=== PATIENT | female | born 1955 | race Asian ===

== ENCOUNTER → 2016-11-02 | Outpatient (CLI) | payer OTHER ==
[2016-11-02 15:55] LABS: Basophils # (auto) 0 uL; Basophils % (auto) 0.6 % (0.0-2.0); Eosinophils # (auto) 0.1 uL; Eosinophils % (auto) 2.3 % (0.0-7.0); Hematocrit 42.8 % (36.0-46.0); Hemoglobin 14.3 g/dL (12.2-16.2); Lymphocytes # (auto) 1.6 uL; Lymphocytes % (auto) 32.2 % (10.0-50.0); Mean Corpuscular Hemoglobin 30.5 pg (28.0-32.0); Mean Corpuscular Hgb Conc. 33.4 g/dL (32.0-36.0); Mean Corpuscular Volume 91.1 fL (80.0-100.0); Mean Platelet Volume 9.9 fL (7.4-10.4); Monocytes # (auto) 0.3 uL; Neutrophils # (auto) 2.9 uL; Neutrophils % (auto) 58.9 % (37.0-80.0); Platelet Count (auto) 226 10^3/uL (140-450); Red Cell Distribution Width 12.2 % (11.6-16.0); White Blood Cell 4.9 10^3/uL (4.4-10.8)
[2016-11-02 16:22] LABS: Albumin 4.1 g/dL (3.4-5.0); BUN/Creatinine Ratio 20.3; Bilirubin, Direct 0.1 mg/dL (0-0.2); Bilirubin, Total 0.5 mg/dL (0.2-1.0); Calcium 9.1 mg/dL (8.5-10.1); Potassium 4.1 mmol/L (3.5-5.1); Total Protein 7.6 g/dL (6.4-8.2)
[2016-11-02 17:08] LABS: Temperature: 23.4 C (20.0-25.0); Urine Bilirubin Negative (Negative); Urine Blood Negative /uL (Negative); Urine Color Yellow (Yellow); Urine Glucose Normal (Normal); Urine Ketone Negative (Negative); Urine Nitrite Negative (Negative); Urine Urobilinogen Normal (Negative); Urine pH 6.5 (5.0-8.0)
== END | disposition home or self-care (01) ==
LOC: LAB 08:16
PROVIDERS: ATTEND Internal Medicine Cardiovascular Disease
DX: I10 Essential (primary) hypertension (principal); E78.00 Pure hypercholesterolemia, unspecified; K74.1 Hepatic sclerosis; E11.9 Type 2 diabetes mellitus without complications; E03.9 Hypothyroidism, unspecified; D64.9 Anemia, unspecified; E55.9 Vitamin D deficiency, unspecified; N39.0 Urinary tract infection, site not specified; D51.9 Vitamin B12 deficiency anemia, unspecified
CPT/HCPCS: 36415; 80048; 80061; 80076; 81003; 82306; 82607; 82746; 83036; 84443; 85025

== ENCOUNTER → 2017-04-06 | Outpatient (CLI) | payer OTHER ==
[~2017-04-06] VITALS: Ht 161.3 cm; Wt 59.9 kg
== END | disposition home or self-care (01) ==
LOC: Rad HDHVI 09:15
PROVIDERS: ATTEND Internal Medicine Cardiovascular Disease
DX: I10 Essential (primary) hypertension (principal); I25.10 Atherosclerotic heart disease of native coronary artery without angina pectoris; I25.2 Old myocardial infarction; E78.00 Pure hypercholesterolemia, unspecified; Z95.5 Presence of coronary angioplasty implant and graft
CPT/HCPCS: 78452; 93017; 96374; A9500

== ENCOUNTER → 2017-11-20 | Outpatient (CLI) | payer OTHER ==
[2017-11-20 12:09] LABS: Urine Blood Negative /uL (Negative); Urine Specific Gravity 1.023 (1.001-1.035)
[2017-11-20 12:11] LABS: Basophils # (auto) 0 uL; Basophils % (auto) 0.8 % (0.0-2.0); Eosinophils # (auto) 0.1 uL; Eosinophils % (auto) 1.2 % (0.0-7.0); Hematocrit 41.7 % (36.0-46.0); Lymphocytes # (auto) 1.8 uL; Mean Corpuscular Hemoglobin 30.8 pg (28.0-32.0); Mean Corpuscular Hgb Conc. 33.6 g/dL (32.0-36.0); Mean Corpuscular Volume 91.6 fL (80.0-100.0); Monocytes # (auto) 0.3 uL; Monocytes % (auto) 6.1 % (0.0-12.0); Neutrophils # (auto) 2.3 uL; Neutrophils % (auto) 51.9 % (37.0-80.0); Nucleated Red Blood Cells % 0.1 %; Platelet Count (auto) 217 10^3/uL (140-450); Red Blood Cells 4.56 10^6/uL (4.0-5.20); Red Cell Distribution Width 12.6 % (11.8-14.3); White Blood Cell 4.5 10^3/uL (4.4-10.8)
[2017-11-20 12:45] LABS: Free T4 (Free Thyroxine) 1.17 ng/dL (0.89-1.76)
[2017-11-20 12:46] LABS: Albumin 4.2 g/dL (3.4-5.0); BUN/Creatinine Ratio 18.6; Bilirubin, Total 0.5 mg/dL (0.2-1.0); Calcium 9.2 mg/dL (8.5-10.1); Potassium 4.1 mmol/L (3.5-5.1); Total Protein 7.4 g/dL (6.4-8.2)
== END | disposition home or self-care (01) ==
LOC: LAB 08:52
PROVIDERS: ATTEND Internal Medicine Cardiovascular Disease
DX: I10 Essential (primary) hypertension (principal); D64.9 Anemia, unspecified; E78.5 Hyperlipidemia, unspecified; E11.9 Type 2 diabetes mellitus without complications; E55.9 Vitamin D deficiency, unspecified; E03.9 Hypothyroidism, unspecified; D51.9 Vitamin B12 deficiency anemia, unspecified; N39.0 Urinary tract infection, site not specified
CPT/HCPCS: 36415; 80053; 80061; 81003; 82306; 82607; 83036; 84439; 84443; 85025

== ENCOUNTER → 2017-12-05 | Outpatient (CLI) | payer OTHER ==
[~2017-12-05] MED LIST: IOHEXOL 350 MG/ML 100ML IJ ONE; READI-CAT 2 (BARIUM SULF)(VANILLA SMOOTHIE) 450ML ONE
[2017-12-05 10:45] VITALS: BP 153/87
[2017-12-05 11:30] VITALS: BP 139/84
== END | disposition home or self-care (01) ==
LOC: Rad HDHVI 10:42
PROVIDERS: ATTEND Internal Medicine Cardiovascular Disease
DX: N83.209 Unspecified ovarian cyst, unspecified side (principal); K57.30 Diverticulosis of large intestine without perforation or abscess without bleeding
CPT/HCPCS: 74177; 82565; G0463; Q9967

== ENCOUNTER → 2018-05-08 | Outpatient (CLI) | payer OTHER | END | disposition home or self-care (01) | LOC: Rad HDHVI 08:53 | PROVIDERS: ATTEND Internal Medicine Cardiovascular Disease | DX: M19.042 Primary osteoarthritis, left hand (principal); M19.041 Primary osteoarthritis, right hand | CPT/HCPCS: 73130 ==

== ENCOUNTER → 2018-06-27 | Outpatient (CLI) | payer OTHER ==
[2018-06-27 09:39] LABS: Urine Blood Negative /uL (Negative); Urine Specific Gravity 1.022 (1.001-1.035)
[2018-06-27 09:41] LABS: Basophils # (auto) 0 uL; Basophils % (auto) 0.6 % (0.0-2.0); Eosinophils # (auto) 0.1 uL; Eosinophils % (auto) 2.1 % (0.0-7.0); Hemoglobin 13.2 g/dL (12.2-16.2); Lymphocytes % (auto) 39.5 % (10.0-50.0); Mean Corpuscular Hemoglobin 30.9 pg (28.0-32.0); Mean Corpuscular Hgb Conc. 33.8 g/dL (32.0-36.0); Mean Corpuscular Volume 91.4 fL (80.0-100.0); Monocytes # (auto) 0.6 uL; Monocytes % (auto) 11.1 % (0.0-12.0); Neutrophils # (auto) 2.3 uL; Neutrophils % (auto) 46.7 % (37.0-80.0); Platelet Count (auto) 214 10^3/uL (140-450); Red Blood Cells 4.27 10^6/uL (4.0-5.20); Red Cell Distribution Width 12.2 % (11.8-14.3)
[2018-06-27 10:04] LABS: Albumin 3.9 g/dL (3.4-5.0); Calcium 9.2 mg/dL (8.5-10.1); Potassium 3.9 mmol/L (3.5-5.1)
[2018-06-27 10:09] LABS: BUN/Creatinine Ratio 20.3; Bilirubin, Total 0.5 mg/dL (0.2-1.0); Total Protein 7.5 g/dL (6.4-8.2)
== END | disposition home or self-care (01) ==
LOC: LAB 08:11
PROVIDERS: ATTEND Internal Medicine
DX: Z12.11 Encounter for screening for malignant neoplasm of colon (principal); I10 Essential (primary) hypertension; E78.5 Hyperlipidemia, unspecified; E11.9 Type 2 diabetes mellitus without complications; Z87.891 Personal history of nicotine dependence
CPT/HCPCS: 36415; 80053; 80061; 81003; 82306; 83036; 84443; 85025

== ENCOUNTER → 2018-07-01 | Outpatient (CLI) | payer OTHER | END | disposition home or self-care (01) | LOC: LAB 09:14 | PROVIDERS: ATTEND Internal Medicine | DX: Z12.11 Encounter for screening for malignant neoplasm of colon (principal); I10 Essential (primary) hypertension; E78.5 Hyperlipidemia, unspecified | CPT/HCPCS: 82270 ==

== ENCOUNTER → 2018-08-26 | Outpatient (CLI) | payer OTHER ==
[~2018-08-26] VITALS: Ht 30.5 cm; Wt 0.5 kg
[~2018-08-26] MED LIST changes: +FUROSEMIDE 40 MG/4 ML VIAL IV ONE; +FUROSEMIDE 40 MG/4 ML VIAL ONE; -IOHEXOL 350 MG/ML 100ML IJ ONE; -READI-CAT 2 (BARIUM SULF)(VANILLA SMOOTHIE) 450ML ONE
[2018-08-26 09:44] LABS: BUN/Creatinine Ratio 16.3; Potassium 4.1 mmol/L (3.5-5.1)
== END | disposition home or self-care (01) ==
LOC: XYW 08:53
PROVIDERS: ATTEND Urology
DX: N13.30 Unspecified hydronephrosis (principal)
CPT/HCPCS: 36415; 78707; 80048; A9562; J1940

== ENCOUNTER → 2018-10-02 | Outpatient (CLI) | payer OTHER ==
[2018-10-02 09:43] LABS: Albumin 3.8 g/dL (3.4-5.0); Bilirubin, Direct 0.2 mg/dL (0-0.2)
[2018-10-02 09:46] LABS: Bilirubin, Total 0.5 mg/dL (0.2-1.0); Total Protein 7.8 g/dL (6.4-8.2)
[2018-10-03 09:22] LABS: Hepatitis A Total Antibody Positive
[2018-10-03 11:43] LABS: Hepatitis B Surface Antigen Negative (Negative)
[2018-10-03 11:44] LABS: Hepatitis B Surface Antibody Positive; Hepatitis C Antibody Negative (Negative)
[2018-10-03 14:20] LABS: Hepatitis B Core Total AB Positive
== END | disposition home or self-care (01) ==
LOC: LAB 08:13
PROVIDERS: ATTEND Internal Medicine
DX: E11.9 Type 2 diabetes mellitus without complications (principal); E78.5 Hyperlipidemia, unspecified
CPT/HCPCS: 36415; 80076; 83036; 86704; 86706; 86708; 86803; 87340

== ENCOUNTER 2018-12-27 10:11 | Day surgery (SDC) | payer OTHER ==
[2018-12-24 09:31] LABS: Urine WBC None Seen /hpf (0 - 5)
[2018-12-24 09:41] LABS: Basophils # (auto) 0 uL; Basophils % (auto) 0.7 % (0.0-2.0); Eosinophils # (auto) 0.1 uL; Eosinophils % (auto) 1.9 % (0.0-7.0); Hematocrit 40.8 % (36.0-46.0); Hemoglobin 13.8 g/dL (12.2-16.2); Lymphocytes # (auto) 2.2 uL; Lymphocytes % (auto) 38.1 % (10.0-50.0); Mean Corpuscular Hemoglobin 31.2 pg (28.0-32.0); Mean Corpuscular Hgb Conc. 33.9 g/dL (32.0-36.0); Mean Corpuscular Volume 92.1 fL (80.0-100.0); Monocytes # (auto) 0.4 uL; Monocytes % (auto) 6.7 % (0.0-12.0); Neutrophils % (auto) 52.6 % (37.0-80.0); Nucleated Red Blood Cells % 0.1 %; Platelet Count (auto) 204 10^3/uL (140-450); Red Blood Cells 4.43 10^6/uL (4.0-5.20); Red Cell Distribution Width 12.8 % (11.8-14.3); White Blood Cell 5.7 10^3/uL (4.4-10.8)
[2018-12-24 09:48] LABS: Urine Amorphous Crystal MOD /hpf (None Seen); Urine Bacteria NONE SEEN /hpf (None Seen); Urine Blood Negative /uL (Negative)
[2018-12-24 09:58] LABS: INR 0.92 (0.9-1.15); Partial Thromboplastin Time 27.5 sec (23.64-32.05)
[~2018-12-27] VITALS: Ht 162.6 cm; Wt 54.4 kg
[~2018-12-27 10:11] MED LIST changes: +ATOR10TA52 PO; +ENA10T PO; -FUROSEMIDE 40 MG/4 ML VIAL IV ONE; -FUROSEMIDE 40 MG/4 ML VIAL ONE; +ZOLP10TA PO
[2018-12-27] MEDS ORDERED: LIDOCAINE VISCOUS 2% 15ML UD ONE (10:28)
[2018-12-27] MEDS ORDERED: SODIUM CHLORIDE LOCK 10 ML ONE (10:28)
[2018-12-27] MEDS ORDERED: diphenhdrAMINE HCL 50 MG/1 ML VL ONE (10:29)
[2018-12-27] MEDS ORDERED: fentaNYL CITRATE 100 MCG/2 ML VL ONE (10:29)
[2018-12-27] MEDS ORDERED: MIDAZOLAM HCL 5 MG/ML-1ML VIAL ONE (10:29)
[2018-12-27 12:32] VITALS: BP 121/78
== END 2018-12-27 12:47 | disposition home or self-care (01) ==
LOC: SUR 10:11
PROVIDERS: ATTEND Internal Medicine Gastroenterology
DX: Z12.11 Encounter for screening for malignant neoplasm of colon (principal); K64.8 Other hemorrhoids; Z79.899 Other long term (current) drug therapy
CPT/HCPCS: 36415; 45378; 81001; 85025; 85610; 85730; J1200; J2250; J3010; J7030; 99152

== ENCOUNTER → 2019-01-01 | Outpatient (CLI) | payer OTHER | END | disposition home or self-care (01) | LOC: LAB 09:05 | PROVIDERS: ATTEND Internal Medicine | DX: E11.9 Type 2 diabetes mellitus without complications (principal) | CPT/HCPCS: 82043 ==

== ENCOUNTER → 2019-01-29 | Outpatient (CLI) | payer OTHER ==
[2019-01-29 09:21] LABS: Albumin 4.2 g/dL (3.4-5.0); Calcium 9.2 mg/dL (8.5-10.1); Potassium 3.8 mmol/L (3.5-5.1)
[2019-01-29 09:25] LABS: BUN/Creatinine Ratio 15.6; Bilirubin, Total 0.6 mg/dL (0.2-1.0); Total Protein 7.5 g/dL (6.4-8.2)
[2019-01-29 09:30] LABS: Free T4 (Free Thyroxine) 0.89 ng/dL (0.89-1.76)
[2019-01-29 09:31] LABS: Free T3 3.73 pg/mL (2.3-4.2)
== END | disposition home or self-care (01) ==
LOC: LAB 08:02
PROVIDERS: ATTEND Internal Medicine
DX: E78.5 Hyperlipidemia, unspecified (principal); E03.9 Hypothyroidism, unspecified
CPT/HCPCS: 36415; 80053; 80061; 83036; 84439; 84443; 84481

== ENCOUNTER → 2019-05-28 | Outpatient (CLI) | payer OTHER ==
[~2019-05-28] MED LIST changes: -ENA10T PO; +ENAL10TA PO
== END | disposition home or self-care (01) ==
LOC: LAB 08:51
PROVIDERS: ATTEND Internal Medicine
DX: E11.9 Type 2 diabetes mellitus without complications (principal)
CPT/HCPCS: 36415; 83036

== ENCOUNTER → 2019-11-18 | Outpatient (CLI) | payer OTHER ==
[~2019-11-18] MED LIST changes: +CHOL20007 PO; -ENAL10TA PO; +ENAL10TA12 PO; +ENAL10TA13 PO; +MULT1TAB65 PO; +PANT40T PO; +PANT40TA2 PO; +SUCR1TAB22 OR; +ZOLP10TA6 PO
== END | disposition home or self-care (01) ==
LOC: LAB 11:00
PROVIDERS: ATTEND Internal Medicine
DX: M19.90 Unspecified osteoarthritis, unspecified site (principal); R51 Headache; E78.5 Hyperlipidemia, unspecified
CPT/HCPCS: 36415; 82670; 86038; 86141; 86431

== ENCOUNTER → 2019-12-16 | Outpatient (CLI) | payer OTHER ==
[~2019-12-16] MED LIST changes: -CHOL20007 PO; +ENAL10TA PO; -ENAL10TA12 PO; -ENAL10TA13 PO; -MULT1TAB65 PO; -PANT40T PO; -PANT40TA2 PO; -SUCR1TAB22 OR; -ZOLP10TA6 PO
[2019-12-16 09:39] LABS: Cholesterol 157 mg/dL (< 200); HDL Cholesterol 53 mg/dL (40-59); LDL Cholesterol 91 mg/dL (< 100); Triglycerides 139 mg/dL (< 150)
== END | disposition home or self-care (01) ==
LOC: LAB 08:29
PROVIDERS: ATTEND Internal Medicine
DX: R73.03 Prediabetes (principal); E78.5 Hyperlipidemia, unspecified
CPT/HCPCS: 36415; 80061; 82043; 83036

== ENCOUNTER → 2019-12-19 | Outpatient (CLI) | payer OTHER | END | disposition home or self-care (01) | LOC: LAB 08:18 | PROVIDERS: ATTEND Internal Medicine | DX: G93.0 Cerebral cysts (principal) | CPT/HCPCS: 36415; 85652 ==

== ENCOUNTER 2020-04-13 11:16 | Inpatient (IN) | payer OTHER ==
[~2020-04-13] VITALS: Ht 165.1 cm; Wt 55.7 kg
[~2020-04-13 11:16] MED LIST changes: -ENAL10TA PO; +ENAL10TA12 PO
[2020-04-13 12:24] LABS: CRP High Sensitivity 0.02 mg/dL (< 0.3)
[2020-04-13] MEDS ORDERED: ACETAMINOPHEN 500 MG TAB PO PRN (13:15)
[2020-04-13] MEDS ORDERED: NITROGLYCERIN 0.4 MG SL TAB SL PRN (13:15)
[2020-04-13] MEDS ORDERED: MORPHINE SULF INJ 2 MG/ML SYRINGE 1ML IV PRN (13:15)
[2020-04-13] MEDS ORDERED: LORazepam 0.5 MG TAB PO PRN (13:30)
[2020-04-13] MEDS ORDERED: hydrALAZINE HCL 20 MG/ML VL IV PRN (13:30)
[2020-04-13] MEDS ORDERED: DOCUSATE CALCIUM 240 MG CAP PO PRN (13:30)
[2020-04-13] MEDS: ALBUTEROL SULF HFA 90MCG INH 200DOSE IN SCH ×2 (14:00→21:38)
[2020-04-13] MEDS: CHOLECALCIFEROL (VITD3) 2,000 UNIT CAP PO SCH (14:03)
[2020-04-13] MEDS: ASCORBIC ACID 1,000 MG TAB PO SCH (14:03)
[2020-04-13] MEDS: ZINC SULFATE 220mg CAP or TAB PO SCH (14:03)
[2020-04-13] MEDS: DOXYCYCLINE 100 MG TAB/CAP PO SCH ×2 (14:03→20:32)
[2020-04-13] MEDS: SODIUM CHLORIDE 0.9% 1,000 ML IV SCH (14:04)
[2020-04-13] MEDS: ENOXAPARIN SOD 40 MG/0.4 ML SYRINGE SC SCH (14:04)
[2020-04-13 15:25] VITALS: BP 181/89
[2020-04-13 15:28] LABS: Albumin 4.2 g/dL (3.4-5.0); Calcium 9.2 mg/dL (8.5-10.1); Magnesium 2.6 mg/dL (1.6-2.6); Potassium 3.8 mmol/L (3.5-5.1)
[2020-04-13 15:30] LABS: Bilirubin, Total 0.6 mg/dL (0.2-1.0); Total Protein 7.7 g/dL (6.4-8.2)
[2020-04-13 16:21] LABS: Basophils # (auto) 0.1 10 ^3/uL (0-0.2); Basophils % (auto) 1.5 % (0.0-2.0); Eosinophils # (auto) 0 10 ^3/uL (0-0.8); Eosinophils % (auto) 0.5 % (0.0-7.0); Hematocrit 39.3 % (36.0-46.0); Hemoglobin 13.4 g/dL (12.2-16.2); Lymphocytes # (auto) 1.4 10 ^3/uL (0.4-5.4); Lymphocytes % (auto) 29.4 % (10.0-50.0); Mean Corpuscular Hemoglobin 31.4 pg (28.0-32.0); Mean Corpuscular Hgb Conc. 34.2 g/dL (32.0-36.0); Mean Corpuscular Volume 91.8 fL (80.0-100.0); Monocytes # (auto) 0.3 10 ^3/uL (0-1.3); Monocytes % (auto) 5.4 % (0.0-12.0); Neutrophils # (auto) 3.1 10 ^3/uL (1.6-8.6); Neutrophils % (auto) 63.2 % (37.0-80.0); Nucleated Red Blood Cells % 0.1 %; Platelet Count (auto) 194 10^3/uL (140-450); Red Blood Cells 4.28 10^6/uL (4.0-5.20); White Blood Cell 4.9 10^3/uL (4.4-10.8)
[2020-04-13] MEDS ORDERED: ATOR10TA52 PO (16:37)
[2020-04-13] MEDS ORDERED: ZOLP10TA6 PO (16:37)
[2020-04-13] MEDS ORDERED: MULT1TAB65 PO (16:37)
[2020-04-13] MEDS ORDERED: ENAL10TA13 PO (16:37)
[2020-04-13] MEDS ORDERED: CHOL20007 PO (16:37)
[2020-04-13] MEDS ORDERED: PANT40TA2 PO (16:38)
[2020-04-13] MEDS ORDERED: hydrALAZINE HCL 25 MG TAB PO PRN (16:45)
[2020-04-13] MEDS ORDERED: ENALAPRIL MALEATE 10 MG TAB PO ONE (16:45)
[2020-04-13 17:00] VITALS: BP 181/89
[2020-04-13] MEDS ORDERED: BUDESONIDE (INHALATION) 180 MCG IH IN SCH (22:00)
[2020-04-13 22:02] VITALS: BP 135/86
[2020-04-13 22:19] LABS: Urine Amorphous Crystal FEW /hpf (None Seen); Urine Bacteria NONE SEEN /hpf (None Seen); Urine Blood Negative /uL (Negative); Urine Specific Gravity 1.006 (1.001-1.035); Urine WBC 1 /hpf (0 - 5)
[2020-04-14] VITALS (7 sets, daily range): BP systolic 119–136; BP diastolic 70–86
[2020-04-14 08:17] LABS: Basophils # (auto) 0 10 ^3/uL (0-0.2); Basophils % (auto) 0.6 % (0.0-2.0); Eosinophils # (auto) 0.1 10 ^3/uL (0-0.8); Eosinophils % (auto) 1.3 % (0.0-7.0); Hematocrit 41.9 % (36.0-46.0); Hemoglobin 14.3 g/dL (12.2-16.2); Lymphocytes # (auto) 1.6 10 ^3/uL (0.4-5.4); Lymphocytes % (auto) 39.6 % (10.0-50.0); Mean Corpuscular Hemoglobin 31.5 pg (28.0-32.0); Mean Corpuscular Hgb Conc. 34.1 g/dL (32.0-36.0); Mean Corpuscular Volume 92.5 fL (80.0-100.0); Monocytes # (auto) 0.3 10 ^3/uL (0-1.3); Monocytes % (auto) 6.8 % (0.0-12.0); Neutrophils # (auto) 2.1 10 ^3/uL (1.6-8.6); Neutrophils % (auto) 51.7 % (37.0-80.0); Nucleated Red Blood Cells % 0.2 %; Platelet Count (auto) 196 10^3/uL (140-450); Red Blood Cells 4.53 10^6/uL (4.0-5.20); White Blood Cell 4.1 10^3/uL (4.4-10.8)
[2020-04-14 08:24] LABS: Albumin 4.1 g/dL (3.4-5.0); Calcium 9.3 mg/dL (8.5-10.1); Potassium 4.2 mmol/L (3.5-5.1)
[2020-04-14 08:28] LABS: BUN/Creatinine Ratio 17.6; Bilirubin, Total 0.7 mg/dL (0.2-1.0); Total Protein 7.7 g/dL (6.4-8.2)
[2020-04-14] MEDS: ZINC SULFATE 220mg CAP or TAB PO SCH (10:00)
[2020-04-14] MEDS: ASCORBIC ACID 1,000 MG TAB PO SCH (10:00)
[2020-04-14] MEDS ORDERED: PANTOPRAZOLE 40 MG TAB PO SCH (10:00)
[2020-04-14] MEDS: CHOLECALCIFEROL (VITD3) 2,000 UNIT CAP PO SCH (10:00)
[2020-04-14] MEDS: ENOXAPARIN SOD 40 MG/0.4 ML SYRINGE SC SCH (10:49)
[2020-04-14] MEDS: DOXYCYCLINE 100 MG TAB/CAP PO SCH (10:50)
[2020-04-14] MEDS ORDERED: SODIUM CHLORIDE 0.9% 1,000 ML IV ONE (13:30)
[2020-04-14] MEDS ORDERED: ENALAPRIL MALEATE 10 MG TAB PO ONE (13:45)
[2020-04-14] MEDS ORDERED: IOHEXOL 300 MG/ML 100ML BOTTLE IJ ONE (14:10)
[2020-04-14] MEDS: SUCRALFATE 1 GM/10 ML ORAL SUSP PO SCH ×2 (17:32→21:53)
[2020-04-14] MEDS: SODIUM CHLORIDE 0.9% 1,000 ML IV SCH (19:00)
[2020-04-14] MEDS: PANTOPRAZOLE 40 MG TAB PO SCH (21:52)
[2020-04-14] MEDS: ATORVASTATIN 20 MG TAB PO SCH (21:53)
[2020-04-14] MEDS: ZOLPIDEM TARTRATE 5 MG TAB PO PRN (21:55)
[2020-04-15 05:00] VITALS: BP 120/67
[2020-04-15] MEDS: SUCRALFATE 1 GM/10 ML ORAL SUSP PO SCH ×4 (07:03→21:50)
[2020-04-15 09:00] VITALS: BP 122/73
[2020-04-15] MEDS: PANTOPRAZOLE 40 MG TAB PO SCH ×2 (09:58→21:50)
[2020-04-15] MEDS: ENALAPRIL MALEATE 10 MG TAB PO SCH (09:59)
[2020-04-15] MEDS: CHOLECALCIFEROL (VITD3) 1,000UNIT=25mCg TAB PO SCH (09:59)
[2020-04-15] MEDS: ENOXAPARIN SOD 40 MG/0.4 ML SYRINGE SC SCH (10:00)
[2020-04-15] MEDS ORDERED: PANT40T PO (11:37)
[2020-04-15 13:00] VITALS: BP 134/74
[2020-04-15 17:00] VITALS: BP 133/75
[2020-04-15] MEDS: ATORVASTATIN 20 MG TAB PO SCH (21:50)
[2020-04-15 22:00] VITALS: BP 127/74
[2020-04-15] MEDS: ZOLPIDEM TARTRATE 5 MG TAB PO PRN (22:46)
[2020-04-16] MEDS: SUCRALFATE 1 GM/10 ML ORAL SUSP PO SCH ×2 (03:25→10:29)
[2020-04-16 05:00] VITALS: BP 146/84
[2020-04-16 07:15] LABS: Basophils # (auto) 0 10 ^3/uL (0-0.2); Basophils % (auto) 0.9 % (0.0-2.0); Eosinophils # (auto) 0.1 10 ^3/uL (0-0.8); Eosinophils % (auto) 2.1 % (0.0-7.0); Hematocrit 38.9 % (36.0-46.0); Hemoglobin 13.4 g/dL (12.2-16.2); Lymphocytes # (auto) 1.7 10 ^3/uL (0.4-5.4); Lymphocytes % (auto) 45.9 % (10.0-50.0); Mean Corpuscular Hemoglobin 31.7 pg (28.0-32.0); Mean Corpuscular Hgb Conc. 34.6 g/dL (32.0-36.0); Mean Corpuscular Volume 91.8 fL (80.0-100.0); Monocytes # (auto) 0.3 10 ^3/uL (0-1.3); Monocytes % (auto) 7.7 % (0.0-12.0); Neutrophils # (auto) 1.6 10 ^3/uL (1.6-8.6); Neutrophils % (auto) 43.4 % (37.0-80.0); Platelet Count (auto) 172 10^3/uL (140-450); Red Blood Cells 4.23 10^6/uL (4.0-5.20); Red Cell Distribution Width 12.2 % (11.8-14.3); White Blood Cell 3.8 10^3/uL (4.4-10.8)
[2020-04-16 07:24] LABS: INR 0.99 (0.9-1.15); Partial Thromboplastin Time 30.2 sec (23.0-31.2)
[2020-04-16 07:50] LABS: BUN/Creatinine Ratio 14.9; Calcium 8.9 mg/dL (8.5-10.1)
[2020-04-16 09:00] VITALS: BP 122/78
[2020-04-16] MEDS: ENALAPRIL MALEATE 10 MG TAB PO SCH (09:07)
[2020-04-16] MEDS: CHOLECALCIFEROL (VITD3) 1,000UNIT=25mCg TAB PO SCH (09:07)
[2020-04-16] MEDS: PANTOPRAZOLE 40 MG TAB PO SCH (09:07)
[2020-04-16] MEDS: ENOXAPARIN SOD 40 MG/0.4 ML SYRINGE SC SCH (09:07)
[2020-04-16 13:00] VITALS: BP 130/75
[2020-04-16] MEDS ORDERED: SUCR1TAB22 OR (13:44)
[2020-04-16] MEDS ORDERED: SODIUM CHLORIDE LOCK 10 ML ONE (15:22)
[2020-04-16] MEDS ORDERED: LIDOCAINE VISCOUS 2% 15ML UD ONE (15:22)
[2020-04-16] MEDS ORDERED: MIDAZOLAM HCL 5 MG/ML-1ML VIAL ONE (15:22)
[2020-04-16] MEDS ORDERED: fentaNYL CITRATE 100 MCG/2 ML VL ONE (15:22)
[2020-04-16] MEDS: diphenhdrAMINE HCL 50 MG/1 ML VL ONE ×2 (15:25→15:28)
[2020-04-16 16:15] VITALS: BP 151/78
== END 2020-04-16 17:20 | disposition home or self-care (01) | DRG 384 ==
LOC: ER 11:16 → TELE 11:17 → MERGE 11:17 → TELE-EAST 15:27 → TELE-WESTW 04-14 02:57 → WEST WING 04-14 13:49
PROVIDERS: ADMIT Family Medicine; ATTEND Internal Medicine
PROC: 0DB88ZX Excision of Small Intestine, Via Natural or Artificial Opening Endoscopic, Diagnostic (ICD-10-PCS; 2020-04-16)
PROC: 0DB68ZX Excision of Stomach, Via Natural or Artificial Opening Endoscopic, Diagnostic (ICD-10-PCS; principal; 2020-04-16 15:23)
DX: K27.9 Peptic ulcer, site unspecified, unspecified as acute or chronic, without hemorrhage or perforation (principal); K29.70 Gastritis, unspecified, without bleeding; K44.9 Diaphragmatic hernia without obstruction or gangrene; K21.9 Gastro-esophageal reflux disease without esophagitis; K29.80 Duodenitis without bleeding; I16.0 Hypertensive urgency; R06.03 Acute respiratory distress; E78.5 Hyperlipidemia, unspecified; I10 Essential (primary) hypertension; Z20.828 Contact with and (suspected) exposure to other viral communicable diseases; Z95.5 Presence of coronary angioplasty implant and graft; Z82.49 Family history of ischemic heart disease and other diseases of the circulatory system; Z87.891 Personal history of nicotine dependence
CPT/HCPCS: 36415; 43239; 71045; 74177; 80048; 80053; 81001; 82728; 83605; 83615; 83735; 84443; 84484; 85025; 85379; 85610; 85730; 86141; 86850; 86900; 86901; 87040; 87426; G0378; J2250

== ENCOUNTER 2020-06-07 16:06 | Emergency (ER) | payer OTHER ==
[~2020-06-07] VITALS: Ht 152.4 cm; Wt 52.2 kg
[~2020-06-07 16:06] MED LIST changes: +CHOL20007 PO; +ENAL10TA13 PO; +MULT1TAB65 PO; +PANT40T PO; +SUCR1TAB22 OR; +ZOLP10TA6 PO
[2020-06-07 16:12] VITALS: BP 169/84
== END 2020-06-07 20:50 | disposition home or self-care (01) ==
LOC: ER 16:08
DX: J06.9 Acute upper respiratory infection, unspecified (principal); I10 Essential (primary) hypertension; F17.210 Nicotine dependence, cigarettes, uncomplicated; Z20.828 Contact with and (suspected) exposure to other viral communicable diseases
CPT/HCPCS: 36415; 71045; 87426; 99284; U0003

== ENCOUNTER → 2020-12-27 | Outpatient (CLI) | payer OTHER ==
[2020-12-27 09:08] LABS: Cholesterol 159 mg/dL (< 200); HDL Cholesterol 55 mg/dL (40-59); LDL Cholesterol 87 mg/dL (< 100); Triglycerides 121 mg/dL (< 150)
== END | disposition home or self-care (01) ==
LOC: LAB 08:01
PROVIDERS: ATTEND Internal Medicine
DX: I10 Essential (primary) hypertension (principal); R73.03 Prediabetes; E78.5 Hyperlipidemia, unspecified
CPT/HCPCS: 36415; 80061; 82043; 83036

== ENCOUNTER → 2021-01-06 | Outpatient (CLI) | payer OTHER | END | disposition home or self-care (01) | LOC: LAB 08:35 | PROVIDERS: ATTEND Internal Medicine | DX: I10 Essential (primary) hypertension (principal); E78.5 Hyperlipidemia, unspecified; R73.03 Prediabetes | CPT/HCPCS: 82270 ==

== ENCOUNTER → 2021-08-22 | Outpatient (CLI) | payer OTHER | END | disposition home or self-care (01) | LOC: LAB 09:01 | PROVIDERS: ATTEND Internal Medicine | DX: R73.03 Prediabetes (principal) | CPT/HCPCS: 36415; 83036 ==

== ENCOUNTER → 2021-11-24 | Outpatient (CLI) | payer MEDICARE ==
[2021-11-24 09:27] LABS: Cholesterol 153 mg/dL (< 200); HDL Cholesterol 49 mg/dL (40-59); LDL Cholesterol 84 mg/dL (< 100); Triglycerides 126 mg/dL (< 150)
== END | disposition home or self-care (01) ==
LOC: LAB 08:32
PROVIDERS: ATTEND Internal Medicine
DX: R73.03 Prediabetes (principal); Z00.00 Encounter for general adult medical examination without abnormal findings; Z79.899 Other long term (current) drug therapy
CPT/HCPCS: 36415; 80061; 82043

== ENCOUNTER 2021-12-30 15:14 | Emergency (ER) | payer MEDICARE ==
[~2021-12-30] VITALS: Ht 160 cm; Wt 53.1 kg
[2021-12-30 15:59] LABS: Urine Bacteria NONE SEEN /hpf (None Seen); Urine Blood Negative /uL (Negative); Urine Specific Gravity 1.002 (1.001-1.035); Urine WBC 1 /hpf (0 - 5)
[2021-12-30 16:25] LABS: Basophils # (auto) 0 10 ^3/uL (0-0.2); Basophils % (auto) 0.8 % (0.0-2.0); Eosinophils # (auto) 0.1 10 ^3/uL (0-0.8); Eosinophils % (auto) 2.2 % (0.0-7.0); Hematocrit 37.4 % (36.0-46.0); Hemoglobin 12.7 g/dL (12.2-16.2); Lymphocytes # (auto) 1.5 10 ^3/uL (0.4-5.4); Lymphocytes % (auto) 39.3 % (10.0-50.0); Mean Corpuscular Hemoglobin 31.2 pg (28.0-32.0); Mean Corpuscular Volume 91.6 fL (80.0-100.0); Monocytes # (auto) 0.3 10 ^3/uL (0-1.3); Monocytes % (auto) 6.7 % (0.0-12.0); Nucleated Red Blood Cells % 0.1 %; Red Blood Cells 4.09 10^6/uL (4.0-5.20); Red Cell Distribution Width 12.1 % (11.8-14.3); White Blood Cell 3.9 10^3/uL (4.4-10.8)
[2021-12-30 16:37] LABS: BUN/Creatinine Ratio 24.6; Calcium 8.9 mg/dL (8.5-10.1); Magnesium 2.6 mg/dL (1.6-2.6)
[2021-12-30 16:40] LABS: Bilirubin, Total 0.3 mg/dL (0.2-1.0); Total Protein 7.1 g/dL (6.4-8.2)
[2021-12-30 16:57] LABS: Partial Thromboplastin Time 30.1 sec (23.6-33.0)
[2021-12-30 17:22] VITALS: BP 159/76
== END 2021-12-30 17:26 | disposition home or self-care (01) ==
LOC: ER 15:14
DX: R07.89 Other chest pain (principal); I10 Essential (primary) hypertension; I25.2 Old myocardial infarction; I25.10 Atherosclerotic heart disease of native coronary artery without angina pectoris; F17.210 Nicotine dependence, cigarettes, uncomplicated; E78.5 Hyperlipidemia, unspecified; Z79.899 Other long term (current) drug therapy; Z91.018 Allergy to other foods
CPT/HCPCS: 36415; 71046; 80053; 81001; 83735; 84443; 84484; 85025; 85610; 85730; 93005

== ENCOUNTER → 2022-01-19 | Outpatient (CLI) | payer MEDICARE | END | disposition home or self-care (01) | LOC: LAB 10:39 | PROVIDERS: ATTEND Internal Medicine | DX: Z12.11 Encounter for screening for malignant neoplasm of colon (principal) | CPT/HCPCS: 82270 ==

== ENCOUNTER 2022-02-19 20:16 | Emergency (ER) | payer MEDICARE, OTHER ==
[~2022-02-19] VITALS: Ht 160 cm; Wt 53.5 kg
[2022-02-19] MEDS ORDERED: SODIUM CHLORIDE 0.9% 1,000 ML IV ONE (20:45)
[2022-02-19] MEDS ORDERED: ALUM & MAG HYDROX-SIMETH LIQ(MAALOX) 30 ML PO ONE (20:45)
[2022-02-19] MEDS ORDERED: DONNATAL 5ml ORAL Elix (BELLADONNA ALK-PHENOBARB) PO ONE (20:45)
[2022-02-19] MEDS ORDERED: PANTOPRAZOLE 40 MG TAB PO ONE (20:45)
[2022-02-19] MEDS ORDERED: IOHEXOL 300 MG/ML 100ML BOTTLE IJ ONE (21:40)
[2022-02-19 22:08] LABS: Basophils # (auto) 0.1 10 ^3/uL (0-0.2); Basophils % (auto) 1.3 % (0.0-2.0); Eosinophils # (auto) 0.1 10 ^3/uL (0-0.8); Eosinophils % (auto) 2.4 % (0.0-7.0); Hematocrit 39.9 % (36.0-46.0); Lymphocytes # (auto) 1.8 10 ^3/uL (0.4-5.4); Lymphocytes % (auto) 33.3 % (10.0-50.0); Mean Corpuscular Hemoglobin 29.8 pg (28.0-32.0); Mean Corpuscular Hgb Conc. 32.7 g/dL (32.0-36.0); Monocytes # (auto) 0.5 10 ^3/uL (0-1.3); Monocytes % (auto) 8.6 % (0.0-12.0); Neutrophils # (auto) 2.9 10 ^3/uL (1.6-8.6); Neutrophils % (auto) 54.4 % (37.0-80.0); Red Blood Cells 4.38 10^6/uL (4.0-5.20); Red Cell Distribution Width 12.4 % (11.8-14.3); White Blood Cell 5.4 10^3/uL (4.4-10.8)
[2022-02-19 22:36] LABS: Albumin 3.9 g/dL (3.4-5.0); BUN/Creatinine Ratio 20.6; Calcium 8.8 mg/dL (8.5-10.1); Magnesium 2.6 mg/dL (1.6-2.6); Potassium 3.9 mmol/L (3.5-5.1)
[2022-02-19 22:37] LABS: Urine Bacteria NONE SEEN /hpf (None Seen); Urine Blood Negative /uL (Negative); Urine WBC <1 /hpf (0 - 5)
[2022-02-19 22:39] LABS: Urine Specific Gravity > 1.050 (1.001-1.035)
[2022-02-19 22:44] LABS: Bilirubin, Total 0.4 mg/dL (0.2-1.0); Total Protein 7.2 g/dL (6.4-8.2)
[2022-02-19] MEDS ORDERED: PANT1INJ3 IV (23:09)
[2022-02-19] MEDS ORDERED: ALUMCHW6 PO (23:09)
[2022-02-19] MEDS ORDERED: METO-281 PO (23:09)
[2022-02-19 23:45] VITALS: BP 147/78
== END 2022-02-20 01:25 | disposition home or self-care (01) ==
LOC: ER 20:16
DX: R10.13 Epigastric pain (principal); I10 Essential (primary) hypertension; Z87.11 Personal history of peptic ulcer disease
CPT/HCPCS: 36415; 71046; 74177; 80053; 81001; 83690; 83735; 85025; 93005; 96360; 99285; J7030; Q9967

== ENCOUNTER 2022-03-23 17:07 | Emergency (ER) | payer MEDICARE, OTHER ==
[~2022-03-23] VITALS: Ht 165.1 cm; Wt 54.9 kg
[~2022-03-23 17:07] MED LIST changes: +ALUMCHW6 PO; +METO-281 PO; +PANT1INJ3 IV
[2022-03-23 17:22] VITALS: BP 141/77
[2022-03-23 20:10] LABS: Albumin 4.3 g/dL (3.4-5.0); Magnesium 2.8 mg/dL (1.6-2.6); Potassium 3.9 mmol/L (3.5-5.1)
[2022-03-23 20:20] LABS: Basophils # (auto) 0.2 10 ^3/uL (0-0.2); Basophils % (auto) 2.9 % (0.0-2.0); Eosinophils # (auto) 0.1 10 ^3/uL (0-0.8); Eosinophils % (auto) 2.3 % (0.0-7.0); Hematocrit 41.3 % (36.0-46.0); Hemoglobin 13.3 g/dL (12.2-16.2); Lymphocytes # (auto) 1.5 10 ^3/uL (0.4-5.4); Lymphocytes % (auto) 27.6 % (10.0-50.0); Mean Corpuscular Hemoglobin 29.6 pg (28.0-32.0); Mean Corpuscular Hgb Conc. 32.2 g/dL (32.0-36.0); Mean Corpuscular Volume 91.9 fL (80.0-100.0); Monocytes # (auto) 0.3 10 ^3/uL (0-1.3); Monocytes % (auto) 5.9 % (0.0-12.0); Neutrophils # (auto) 3.2 10 ^3/uL (1.6-8.6); Neutrophils % (auto) 61.3 % (37.0-80.0); Nucleated Red Blood Cells % 0.1 %; Red Cell Distribution Width 12.3 % (11.8-14.3); White Blood Cell 5.3 10^3/uL (4.4-10.8)
[2022-03-23 20:22] LABS: BUN/Creatinine Ratio 22.1; Bilirubin, Total 0.4 mg/dL (0.2-1.0); Total Protein 7.8 g/dL (6.4-8.2)
== END 2022-03-23 22:50 | disposition left against medical advice (07) ==
LOC: ER 17:07
DX: R07.89 Other chest pain (principal); I10 Essential (primary) hypertension; I25.2 Old myocardial infarction; I25.10 Atherosclerotic heart disease of native coronary artery without angina pectoris; E78.5 Hyperlipidemia, unspecified; K21.9 Gastro-esophageal reflux disease without esophagitis; F17.210 Nicotine dependence, cigarettes, uncomplicated
CPT/HCPCS: 36415; 71045; 80053; 83735; 83880; 84484; 85025

== ENCOUNTER → 2022-03-24 | Outpatient (CLI) | payer MEDICARE, OTHER | END | disposition home or self-care (01) | LOC: LAB 13:50 | PROVIDERS: ATTEND Internal Medicine | DX: I73.9 Peripheral vascular disease, unspecified (principal) | CPT/HCPCS: 36415; 85379 ==

== ENCOUNTER → 2022-04-07 | Outpatient (CLI) | payer MEDICARE, OTHER | END | disposition home or self-care (01) | LOC: Rad HDHVI 08:52 | PROVIDERS: ATTEND Internal Medicine Cardiovascular Disease | DX: I34.0 Nonrheumatic mitral (valve) insufficiency (principal); I10 Essential (primary) hypertension; E78.5 Hyperlipidemia, unspecified | CPT/HCPCS: 93306 ==

== ENCOUNTER → 2022-04-12 | Outpatient (CLI) | payer MEDICARE, OTHER | END | disposition home or self-care (01) | LOC: Rad HDHVI 08:45 | PROVIDERS: ATTEND Internal Medicine Cardiovascular Disease | DX: R94.4 Abnormal results of kidney function studies (principal); E78.00 Pure hypercholesterolemia, unspecified; I10 Essential (primary) hypertension | CPT/HCPCS: 36415; 82565; 84520; 93880 ==

== ENCOUNTER → 2022-04-13 | Outpatient (CLI) | payer MEDICARE, OTHER ==
[~2022-04-13] MED LIST changes: +IOHEXOL 350 MG/ML 100ML IJ ONE; +READI-CAT 2 (BARIUM SULF)(VANILLA SMOOTHIE) 450ML ONE
[2022-04-13 08:54] VITALS: BP 141/84
[2022-04-13 10:00] VITALS: BP 159/79
== END | disposition home or self-care (01) ==
LOC: Rad HDHVI 08:44
PROVIDERS: ATTEND Internal Medicine Cardiovascular Disease
DX: I25.10 Atherosclerotic heart disease of native coronary artery without angina pectoris (principal); R10.9 Unspecified abdominal pain
CPT/HCPCS: 74177; G0463; Q9967

== ENCOUNTER → 2022-04-21 | Outpatient (CLI) | payer MEDICARE, OTHER ==
[~2022-04-21] VITALS: Ht 160 cm; Wt 53.5 kg
[~2022-04-21] MED LIST changes: -IOHEXOL 350 MG/ML 100ML IJ ONE; -READI-CAT 2 (BARIUM SULF)(VANILLA SMOOTHIE) 450ML ONE
== END | disposition home or self-care (01) ==
LOC: Rad HDHVI 09:32
PROVIDERS: ATTEND Internal Medicine Cardiovascular Disease
DX: I10 Essential (primary) hypertension (principal); I25.10 Atherosclerotic heart disease of native coronary artery without angina pectoris; I25.2 Old myocardial infarction; E78.5 Hyperlipidemia, unspecified; R07.9 Chest pain, unspecified; R06.02 Shortness of breath
CPT/HCPCS: 78452; 93017; 96374; A9500

== ENCOUNTER → 2022-09-26 | Outpatient (CLI) | payer MEDICARE, OTHER ==
[2022-09-26 10:10] LABS: Albumin 4.1 g/dL (3.4-5.0); BUN/Creatinine Ratio 24.2; Bilirubin, Total 0.6 mg/dL (0.2-1.0); Potassium 3.9 mmol/L (3.5-5.1); Total Protein 7.2 g/dL (6.4-8.2)
== END | disposition home or self-care (01) ==
LOC: LAB 08:33
PROVIDERS: ATTEND Internal Medicine
DX: R73.03 Prediabetes (principal); E78.5 Hyperlipidemia, unspecified
CPT/HCPCS: 36415; 80053; 80061; 83036

== ENCOUNTER 2022-12-26 11:32 | Inpatient (IN) | payer MEDICARE, OTHER ==
[~2022-12-26] VITALS: Ht 167.6 cm; Wt 56.8 kg
[~2022-12-26 11:32] MED LIST changes: -ENAL10TA12 PO; -ENAL10TA13 PO; +ENAL1TAB46 PO; +ENAL1TAB47 PO
[2022-12-26 11:56] LABS: Basophils # (auto) 0 10 ^3/uL (0-0.2); Basophils % (auto) 0.7 % (0.0-2.0); Eosinophils # (auto) 0.1 10 ^3/uL (0-0.8); Eosinophils % (auto) 1.8 % (0.0-7.0); Hematocrit 36.9 % (36.0-46.0); Hemoglobin 12.9 g/dL (12.2-16.2); Lymphocytes # (auto) 1.5 10 ^3/uL (0.4-5.4); Lymphocytes % (auto) 38.3 % (10.0-50.0); Mean Corpuscular Hemoglobin 31.8 pg (28.0-32.0); Mean Corpuscular Hgb Conc. 34.9 g/dL (32.0-36.0); Mean Corpuscular Volume 91.1 fL (80.0-100.0); Monocytes # (auto) 0.2 10 ^3/uL (0-1.3); Monocytes % (auto) 6.1 % (0.0-12.0); Neutrophils # (auto) 2.1 10 ^3/uL (1.6-8.6); Neutrophils % (auto) 53.1 % (37.0-80.0); Nucleated Red Blood Cells % 0.1 %; Red Blood Cells 4.05 10^6/uL (4.0-5.20)
[2022-12-26 12:14] LABS: INR 0.93 (0.9-1.15); Partial Thromboplastin Time 28.3 sec (24.6-33.4)
[2022-12-26 13:06] LABS: Calcium 8.7 mg/dL (8.5-10.1); Magnesium 2.7 mg/dL (1.6-2.6); Potassium 3.8 mmol/L (3.5-5.1)
[2022-12-26 13:14] LABS: BUN/Creatinine Ratio 27.4 (10.0-20.0); Bilirubin, Total 0.3 mg/dL (0.2-1.0); Total Protein 6.7 g/dL (6.4-8.2)
[2022-12-26] MEDS ORDERED: NITROGLYCERIN 0.4 MG SL TAB SL PRN (17:00)
[2022-12-26] MEDS ORDERED: MORPHINE SULFATE INJ 2 MG/ml SYRG IV PRN ×2 (17:00)
[2022-12-26] MEDS ORDERED: KETOROLAC TROMETH 30 MG/ML 1ML VIAL IV ONE (17:00)
[2022-12-26] MEDS ORDERED: SODIUM CHLORIDE 0.9% 1,000 ML IV ONE (17:00)
[2022-12-26] MEDS: SUCRALFATE 1 GM TAB PO SCH ×2 (18:00→22:00)
[2022-12-26] MEDS: PANTOPRAZOLE 40 MG TAB PO SCH (22:00)
[2022-12-27] MEDS: ATORVASTATIN 20 MG TAB PO SCH ×2 (05:59→21:02)
[2022-12-27] MEDS: SUCRALFATE 1 GM TAB PO SCH ×4 (05:59→21:01)
[2022-12-27 07:21] LABS: Basophils # (auto) 0 10 ^3/uL (0-0.2); Basophils % (auto) 0.7 % (0.0-2.0); Eosinophils # (auto) 0.1 10 ^3/uL (0-0.8); Eosinophils % (auto) 1.5 % (0.0-7.0); Hematocrit 35.7 % (36.0-46.0); Hemoglobin 12.4 g/dL (12.2-16.2); Lymphocytes # (auto) 1.2 10 ^3/uL (0.4-5.4); Lymphocytes % (auto) 35.3 % (10.0-50.0); Mean Corpuscular Hemoglobin 31.8 pg (28.0-32.0); Mean Corpuscular Hgb Conc. 34.6 g/dL (32.0-36.0); Mean Corpuscular Volume 91.9 fL (80.0-100.0); Monocytes # (auto) 0.2 10 ^3/uL (0-1.3); Monocytes % (auto) 6.4 % (0.0-12.0); Neutrophils # (auto) 1.9 10 ^3/uL (1.6-8.6); Neutrophils % (auto) 56.1 % (37.0-80.0); Nucleated Red Blood Cells % 0.1 %; Red Blood Cells 3.88 10^6/uL (4.0-5.20); Red Cell Distribution Width 12.2 % (11.8-14.3); White Blood Cell 3.5 10^3/uL (4.4-10.8)
[2022-12-27 07:32] LABS: Albumin 3.8 g/dL (3.4-5.0); BUN/Creatinine Ratio 20.8 (10.0-20.0); Bilirubin, Total 0.6 mg/dL (0.2-1.0); Calcium 8.4 mg/dL (8.5-10.1); Total Protein 6.7 g/dL (6.4-8.2)
[2022-12-27 09:15] VITALS: BP 159/80
[2022-12-27] MEDS: ENALAPRIL MALEATE 10 MG TAB PO SCH (10:11)
[2022-12-27] MEDS: PANTOPRAZOLE 40 MG TAB PO SCH ×2 (10:11→21:01)
[2022-12-27] MEDS: ASPirin-EC 81 mg tab PO SCH (10:11)
[2022-12-27 10:53] VITALS: BP 159/80
[2022-12-27 11:00] VITALS: BP 159/80
[2022-12-27 13:00] VITALS: BP 137/73
[2022-12-27 17:00] VITALS: BP 136/76
[2022-12-27 22:00] VITALS: BP 127/76
[2022-12-27] MEDS ORDERED: ZOLPIDEM TARTRATE 5 MG TAB PO PRN (22:00)
[2022-12-28 05:00] VITALS: BP 103/76
[2022-12-28] MEDS: SUCRALFATE 1 GM TAB PO SCH ×2 (05:40→12:00)
[2022-12-28 09:11] VITALS: BP 126/71
[2022-12-28] MEDS: PANTOPRAZOLE 40 MG TAB PO SCH (10:40)
[2022-12-28] MEDS: ASPirin-EC 81 mg tab PO SCH (10:40)
[2022-12-28] MEDS: ENALAPRIL MALEATE 10 MG TAB PO SCH (10:40)
[2022-12-28 12:30] VITALS: BP 113/71
[2022-12-28 14:32] VITALS: BP 126/71
== END 2022-12-28 15:05 | disposition home or self-care (01) | DRG 206 ==
LOC: EDBD 11:32 → ER 11:32 → TELE 16:58 → TELE-EAST 12-27 09:34
PROVIDERS: ADMIT Nurse Practitioner Family; ATTEND Internal Medicine
DX: M94.0 Chondrocostal junction syndrome [Tietze] (principal); I25.10 Atherosclerotic heart disease of native coronary artery without angina pectoris; K21.9 Gastro-esophageal reflux disease without esophagitis; I10 Essential (primary) hypertension; E78.5 Hyperlipidemia, unspecified; Z88.6 Allergy status to analgesic agent; Z87.11 Personal history of peptic ulcer disease; Z87.891 Personal history of nicotine dependence; Z95.5 Presence of coronary angioplasty implant and graft; Z88.1 Allergy status to other antibiotic agents; Z88.5 Allergy status to narcotic agent
CPT/HCPCS: 36415; 71045; 80053; 80061; 83036; 83735; 83880; 84443; 84484; 85025; 85610; 85730; 93005; 93306; 96361; 96374; 99291; G0378; J1885

== ENCOUNTER → 2023-01-03 | Outpatient (CLI) | payer MEDICARE, OTHER ==
[2023-01-03 14:01] LABS: Basophils # (auto) 0 10 ^3/uL (0-0.2); Basophils % (auto) 0.6 % (0.0-2.0); Eosinophils # (auto) 0.1 10 ^3/uL (0-0.8); Eosinophils % (auto) 1.8 % (0.0-7.0); Hematocrit 37.9 % (36.0-46.0); Hemoglobin 12.7 g/dL (12.2-16.2); Lymphocytes # (auto) 1.7 10 ^3/uL (0.4-5.4); Lymphocytes % (auto) 38.8 % (10.0-50.0); Mean Corpuscular Hemoglobin 30.9 pg (28.0-32.0); Mean Corpuscular Hgb Conc. 33.4 g/dL (32.0-36.0); Mean Corpuscular Volume 92.5 fL (80.0-100.0); Monocytes # (auto) 0.3 10 ^3/uL (0-1.3); Monocytes % (auto) 6.7 % (0.0-12.0); Neutrophils # (auto) 2.3 10 ^3/uL (1.6-8.6); Neutrophils % (auto) 52.1 % (37.0-80.0); Nucleated Red Blood Cells % 0.1 %; Red Cell Distribution Width 12.2 % (11.8-14.3); White Blood Cell 4.3 10^3/uL (4.4-10.8)
[2023-01-03 14:14] LABS: CRP High Sensitivity 0.02 mg/dL (< 0.3); Uric Acid 4.5 mg/dL (2.6-6.0)
== END | disposition home or self-care (01) ==
LOC: LAB 13:35
PROVIDERS: ATTEND Internal Medicine
DX: I10 Essential (primary) hypertension (principal); E78.5 Hyperlipidemia, unspecified; M54.2 Cervicalgia; R73.03 Prediabetes
CPT/HCPCS: 36415; 84550; 85025; 86141

== ENCOUNTER 2023-01-13 15:10 | Inpatient (IN) | payer MEDICARE, OTHER ==
[~2023-01-13] VITALS: Ht 165.1 cm; Wt 53.0 kg
[2023-01-13] MEDS: ASPirin 325 MG TAB PO ONE ×2 (15:49→15:55)
[2023-01-13 15:56] LABS: Basophils # (auto) 0 10 ^3/uL (0-0.2); Basophils % (auto) 0.1 % (0.0-2.0); Eosinophils # (auto) 0 10 ^3/uL (0-0.8); Eosinophils % (auto) 0.1 % (0.0-7.0); Hematocrit 39.4 % (36.0-46.0); Lymphocytes # (auto) 0.8 10 ^3/uL (0.4-5.4); Lymphocytes % (auto) 12.1 % (10.0-50.0); Mean Corpuscular Hemoglobin 30.7 pg (28.0-32.0); Mean Corpuscular Hgb Conc. 32.9 g/dL (32.0-36.0); Mean Corpuscular Volume 93.2 fL (80.0-100.0); Monocytes # (auto) 0.2 10 ^3/uL (0-1.3); Monocytes % (auto) 3.3 % (0.0-12.0); Neutrophils # (auto) 5.9 10 ^3/uL (1.6-8.6); Neutrophils % (auto) 84.4 % (37.0-80.0); Nucleated Red Blood Cells % 0.1 %; Red Blood Cells 4.23 10^6/uL (4.0-5.20); Red Cell Distribution Width 12.6 % (11.8-14.3)
[2023-01-13 16:16] LABS: Albumin 4.1 g/dL (3.4-5.0); Calcium 8.5 mg/dL (8.5-10.1)
[2023-01-13 16:19] LABS: BUN/Creatinine Ratio 22.6 (10.0-20.0); Bilirubin, Total 0.3 mg/dL (0.2-1.0); Total Protein 7.1 g/dL (6.4-8.2)
[2023-01-13] MEDS ORDERED: ONDANSETRON HCL 4 MG/2 ML VIAL IV PRN (18:30)
[2023-01-13] MEDS ORDERED: NITROGLYCERIN 0.4 MG SL TAB SL PRN (18:30)
[2023-01-13] MEDS ORDERED: MORPHINE SULFATE INJ 2 MG/ml SYRG IV PRN (18:30)
[2023-01-13] MEDS ORDERED: MORPHINE SULFATE 4 MG/ML SYR/VIAL IV PRN (18:30)
[2023-01-13] MEDS ORDERED: ASPirin 325 MG TAB PO ONE (18:30)
[2023-01-13 18:34] VITALS: BP 135/71
[2023-01-13 19:35] LABS: INR 1.05 (0.9-1.15)
[2023-01-13] MEDS ORDERED: SUCRALFATE 1 GM TAB PO SCH (22:00)
[2023-01-14] MEDS ORDERED: ENALAPRIL MALEATE 10 MG TAB PO SCH (10:00)
[2023-01-14] MEDS ORDERED: ASPirin 81 mg TAB PO SCH (10:00)
[2023-01-14] MEDS ORDERED: PANTOPRAZOLE 40 MG/10 ML VIAL INJ IV SCH (10:00)
[2023-01-14] MEDS ORDERED: MULTIPLE VITAMINS W/ MINERALS TAB PO SCH (10:00)
[2023-01-14] MEDS ORDERED: ATORVASTATIN 20 MG TAB PO SCH (22:00)
== END 2023-01-13 22:24 | disposition left against medical advice (07) | DRG 206 ==
LOC: ER 15:10 → TELE 18:41 → ER 22:24
PROVIDERS: ADMIT Nurse Practitioner Family; ATTEND Nurse Practitioner Family
DX: M94.0 Chondrocostal junction syndrome [Tietze] (principal); E78.5 Hyperlipidemia, unspecified; M47.812 Spondylosis without myelopathy or radiculopathy, cervical region; G89.29 Other chronic pain; K21.9 Gastro-esophageal reflux disease without esophagitis; R73.9 Hyperglycemia, unspecified; Z53.29 Procedure and treatment not carried out because of patient's decision for other reasons; I10 Essential (primary) hypertension; I25.10 Atherosclerotic heart disease of native coronary artery without angina pectoris; K27.9 Peptic ulcer, site unspecified, unspecified as acute or chronic, without hemorrhage or perforation; Z87.11 Personal history of peptic ulcer disease; Z88.1 Allergy status to other antibiotic agents; I25.2 Old myocardial infarction; Z88.5 Allergy status to narcotic agent; Z91.018 Allergy to other foods; Z87.891 Personal history of nicotine dependence; Z88.6 Allergy status to analgesic agent; Z95.5 Presence of coronary angioplasty implant and graft
CPT/HCPCS: 36415; 71045; 80053; 83735; 84484; 85025; 85610; 93005; G0378

== ENCOUNTER 2023-01-19 13:19 | Inpatient (IN) | payer MEDICARE, OTHER ==
[~2023-01-19] VITALS: Ht 162.6 cm; Wt 56.8 kg
[2023-01-19] VITALS (9 sets, daily range): BP systolic 127–162; BP diastolic 71–88; PULSE 52–71; RESP 15–18; TEMP 97.4–98; O2SAT 93–99
[2023-01-19 13:37] LABS: Basophils # (auto) 0 10 ^3/uL (0-0.2); Basophils % (auto) 0.6 % (0.0-2.0); Eosinophils # (auto) 0.1 10 ^3/uL (0-0.8); Eosinophils % (auto) 1.5 % (0.0-7.0); Hematocrit 37.6 % (36.0-46.0); Hemoglobin 12.5 g/dL (12.2-16.2); Lymphocytes # (auto) 1.4 10 ^3/uL (0.4-5.4); Lymphocytes % (auto) 21.7 % (10.0-50.0); Mean Corpuscular Hemoglobin 31.1 pg (28.0-32.0); Mean Corpuscular Hgb Conc. 33.4 g/dL (32.0-36.0); Mean Corpuscular Volume 93.1 fL (80.0-100.0); Monocytes # (auto) 0.4 10 ^3/uL (0-1.3); Monocytes % (auto) 6.7 % (0.0-12.0); Neutrophils # (auto) 4.5 10 ^3/uL (1.6-8.6); Neutrophils % (auto) 69.5 % (37.0-80.0); Nucleated Red Blood Cells % 0.1 %; Red Blood Cells 4.03 10^6/uL (4.0-5.20); Red Cell Distribution Width 12.4 % (11.8-14.3); White Blood Cell 6.4 10^3/uL (4.4-10.8)
[2023-01-19 13:57] LABS: Urine Bacteria NONE SEEN /hpf (None Seen); Urine Blood TRACE /uL (Negative); Urine Clarity Clear (Clear); Urine Protein, UAD Negative (Negative); Urine Specific Gravity 1.006 (1.001-1.035); Urine Urobilinogen Normal (Negative); Urine WBC <1 /hpf (0 - 5)
[2023-01-19 14:00] LABS: Urine Color Yellow (Yellow)
[2023-01-19 14:05] LABS: Albumin 3.8 g/dL (3.4-5.0); Calcium 8.6 mg/dL (8.5-10.1); Potassium 3.8 mmol/L (3.5-5.1)
[2023-01-19 14:07] LABS: INR 0.99 (0.9-1.15); Partial Thromboplastin Time 28.5 SEC (24.5-34.5); Prothrombin Time 10.4 sec (9.3-11.8)
[2023-01-19 14:09] LABS: BUN/Creatinine Ratio 26.3 (10.0-20.0); Bilirubin, Total 0.3 mg/dL (0.2-1.0); Total Protein 6.5 g/dL (6.4-8.2)
[2023-01-19] MEDS ORDERED: MORPHINE SULFATE INJ 2 MG/ml SYRG IM ONE (14:15)
[2023-01-19] MEDS ORDERED: ASPirin 325 MG TAB PO ONE (14:45)
[2023-01-19] MEDS ORDERED: HEPARIN SODIUM (PORCINE) 5000 UNITS/ML 1ML VIAL IV ONE (14:45)
[2023-01-19] MEDS ORDERED: TICAGRELOR 90 MG TAB PO ONE (14:45)
[2023-01-19] MEDS ORDERED: ATORVASTATIN 20 MG TAB PO ONE (14:45)
[2023-01-19] MEDS ORDERED: ANGIOMAX 250 MG VIAL IV ONE (14:48)
[2023-01-19] MEDS ORDERED: MIDAZOLAM HCL 2MG/2ML 2ml VIAL (1mg/ml) ONE (14:48)
[2023-01-19] MEDS ORDERED: fentaNYL CITRATE 100 MCG/2 ML VL ONE (14:48)
[2023-01-19] MEDS ORDERED: HEPARIN SODIUM (PORCINE) 5000 UNITS/ML 1ML VIAL ONE (14:49)
[2023-01-19] MEDS ORDERED: SODIUM CHL 0.9% 50 ML ONE (14:49)
[2023-01-19] MEDS ORDERED: ATORVASTATIN 20 MG TAB ONE (14:50)
[2023-01-19] MEDS ORDERED: LIDOCAINE 2%HCL (LOCAL ANESTH.) INJ 20ML MDV ONE (14:55)
[2023-01-19] MEDS ORDERED: IOHEXOL 350 MG/ML 100ML IJ ONE (14:55)
[2023-01-19] MEDS ORDERED: EPINEPHrine HCL 1 MG/1 ML AMP ONE (15:19)
[2023-01-19] MEDS ORDERED: ATROPINE SULFATE 0.4 MG/1 ML VIAL ONE (15:20)
[2023-01-19] MEDS ORDERED: PNEUMOCOCCAL VACC POLYS 25 MCG/0.5 ML VIAL IM ONE ×2 (17:45→18:00)
[2023-01-19] MEDS ORDERED: HYDR200T36 PO (17:45)
[2023-01-19] MEDS ORDERED: MORPHINE SULFATE INJ 2 MG/ml SYRG IV PRN (18:30)
[2023-01-19] MEDS ORDERED: ENALAPRIL MALEATE 10 MG TAB PO ONE (18:30)
[2023-01-19] MEDS: MAALOX PLUS or MAALOX 30 ML PO SCH (21:17)
[2023-01-19] MEDS: PANTOPRAZOLE 40 MG TAB PO SCH (21:19)
[2023-01-19] MEDS: TICAGRELOR 90 MG TAB PO SCH (21:20)
[2023-01-19] MEDS ORDERED: ZOLPIDEM TARTRATE 5 MG TAB PO SCH (22:00)
[2023-01-19] MEDS ORDERED: ATORVASTATIN 20 MG TAB PO SCH (22:00)
[2023-01-19] MEDS: CHOLECALCIFEROL (VITD3) 2,000 UNIT CAP/TAB PO SCH (22:01)
[2023-01-20] MEDS: MAALOX PLUS or MAALOX 30 ML PO SCH ×2 (05:08→14:19)
[2023-01-20 05:28] VITALS: BP 120/76; PULSE 60; RESP 19; TEMP 98; O2SAT 95
[2023-01-20 08:00] VITALS: BP 128/69; PULSE 55; PULSE 71; RESP 21; TEMP 97.7; O2SAT 98
[2023-01-20] MEDS: CHOLECALCIFEROL (VITD3) 2,000 UNIT CAP/TAB PO SCH (09:43)
[2023-01-20] MEDS: TICAGRELOR 90 MG TAB PO SCH (09:43)
[2023-01-20] MEDS: PANTOPRAZOLE 40 MG TAB PO SCH (09:43)
[2023-01-20 09:54] VITALS: BP 128/69; PULSE 71; RESP 21; TEMP 97.7; O2SAT 98
[2023-01-20] MEDS ORDERED: ENALAPRIL MALEATE 10 MG TAB PO SCH (10:00)
[2023-01-20] MEDS ORDERED: MULTIPLE VITAMINS W/ MINERALS TAB PO SCH (10:00)
[2023-01-20 12:40] VITALS: BP 111/61; PULSE 59; RESP 18; TEMP 97.5; O2SAT 96
[2023-01-20 15:23] VITALS: BP 111/61; PULSE 59; RESP 18; TEMP 97.5; O2SAT 96
[2023-01-20] MEDS ORDERED: PNEUMOCOCCAL VACC POLYS 25 MCG/0.5 ML VIAL IM ONE (16:30)
[2023-02-06] MEDS ORDERED: CLOP75TA70 PO (04:46)
[2023-02-06] MEDS ORDERED: LORA-1123 PO (04:46)
[2023-02-06] MEDS ORDERED: TICA90TA PO (04:46)
== END 2023-01-20 16:30 | disposition home or self-care (01) | DRG 247 ==
LOC: ER 13:19 → TELE 15:22 → TELE-WESTW 17:05
PROVIDERS: ADMIT Internal Medicine Cardiovascular Disease; ATTEND Internal Medicine Cardiovascular Disease
PROC: 027034Z Dilation of Coronary Artery, One Artery with Drug-eluting Intraluminal Device, Percutaneous Approach (ICD-10-PCS; principal; 2023-01-19)
PROC: 4A023N7 Measurement of Cardiac Sampling and Pressure, Left Heart, Percutaneous Approach (ICD-10-PCS; 2023-01-19)
PROC: B2111ZZ Fluoroscopy of Multiple Coronary Arteries using Low Osmolar Contrast (ICD-10-PCS; 2023-01-19)
PROC: B2151ZZ Fluoroscopy of Left Heart using Low Osmolar Contrast (ICD-10-PCS; 2023-01-19)
DX: I21.19 ST elevation (STEMI) myocardial infarction involving other coronary artery of inferior wall (principal); E78.5 Hyperlipidemia, unspecified; I10 Essential (primary) hypertension; I25.10 Atherosclerotic heart disease of native coronary artery without angina pectoris; Z79.02 Long term (current) use of antithrombotics/antiplatelets; Z87.11 Personal history of peptic ulcer disease; Z87.891 Personal history of nicotine dependence; Z88.8 Allergy status to other drugs, medicaments and biological substances
CPT/HCPCS: 36415; 71045; 80053; 81001; 83880; 84484; 85025; 85610; 85730; 87081; 92941; 93005; 93458; 96374; 99152; 99153; 99291; G0378; J0171; J0461; J2250

== ENCOUNTER → 2023-02-23 | Outpatient (CLI) | payer MEDICARE, OTHER ==
[~2023-02-23] MED LIST changes: -ALUMCHW6 PO; +CLOP75TA70 PO; -ENAL1TAB47 PO; +HYDR200T36 PO; +LORA-1123 PO; -METO-281 PO; -PANT1INJ3 IV; -SUCR1TAB22 OR; +TICA90TA PO; -ZOLP10TA6 PO
[2023-02-23 11:04] LABS: Erythrocyte Sedimentation Rate 5 mm/hr (0-20)
== END | disposition home or self-care (01) ==
LOC: LAB 09:50
PROVIDERS: ATTEND Internal Medicine
DX: I25.10 Atherosclerotic heart disease of native coronary artery without angina pectoris (principal); M54.2 Cervicalgia; M94.0 Chondrocostal junction syndrome [Tietze]; E78.2 Mixed hyperlipidemia
CPT/HCPCS: 36415; 85652; 86141

== ENCOUNTER → 2023-02-26 | Outpatient (CLI) | payer MEDICARE, OTHER | END | disposition home or self-care (01) | LOC: Rad HDHVI 13:03 | PROVIDERS: ATTEND Internal Medicine Cardiovascular Disease | DX: I34.0 Nonrheumatic mitral (valve) insufficiency (principal); I10 Essential (primary) hypertension | CPT/HCPCS: 93306 ==

== ENCOUNTER → 2023-05-07 | Outpatient (CLI) | payer MEDICARE, OTHER ==
[2023-05-07 08:37] LABS: Triglycerides 88 mg/dL (< 150)
[2023-05-07 08:38] LABS: LDL Cholesterol 67 mg/dL (< 100)
[2023-05-07 08:39] LABS: Cholesterol 146 mg/dL (< 200)
[2023-05-07 08:40] LABS: HDL Cholesterol 58 mg/dL (40-59)
== END | disposition home or self-care (01) ==
LOC: LAB 08:01
PROVIDERS: ATTEND Internal Medicine
DX: R73.03 Prediabetes (principal); Z79.899 Other long term (current) drug therapy
CPT/HCPCS: 36415; 80061; 83036

== ENCOUNTER → 2023-06-18 | Outpatient (CLI) | payer MEDICARE, OTHER | END | disposition home or self-care (01) | LOC: Rad HDHVI 10:03 | PROVIDERS: ATTEND Internal Medicine Cardiovascular Disease | DX: I34.81 Nonrheumatic mitral (valve) annulus calcification (principal); I10 Essential (primary) hypertension | CPT/HCPCS: 93306 ==

== ENCOUNTER → 2023-07-11 | Outpatient (CLI) | payer MEDICARE, OTHER ==
[2023-07-11 08:29] LABS: Alanine Aminotransferase 14 U/L (7-40); Albumin 4.5 g/dL (3.2-4.8); Alkaline Phosphatase 40 U/L (46-116); Amylase 76 U/L (30-118); Anion Gap 3 (5-15); Aspartate Aminotransferase 15 U/L (13-40); BUN/Creatinine Ratio 14.1 (10.0-20.0); Bilirubin, Total 0.8 mg/dL (0.2-1.0); Blood Urea Nitrogen 10 mg/dL (9-23); Calcium 9.6 mg/dL (8.5-10.1); Carbon Dioxide 32 mmol/L (20-30); Chloride 107 mmol/L (98-107); Glucose 113 mg/dL (74-106); Sodium 142 mmol/L (136-145)
[2023-07-11 09:00] LABS: Lipase 42 U/L (12-53)
== END | disposition home or self-care (01) ==
LOC: LAB 07:55
PROVIDERS: ATTEND Internal Medicine
DX: R10.9 Unspecified abdominal pain (principal)
CPT/HCPCS: 36415; 80053; 82150; 83690

== ENCOUNTER → 2023-07-24 | Outpatient (CLI) | payer MEDICARE, OTHER | END | disposition home or self-care (01) | LOC: LAB 12:43 | PROVIDERS: ATTEND Internal Medicine | DX: Z12.11 Encounter for screening for malignant neoplasm of colon (principal) | CPT/HCPCS: 82270 ==

== ENCOUNTER → 2023-11-13 | Outpatient (CLI) | payer MEDICARE, OTHER ==
[2023-11-13 08:33] LABS: Chloride 106 mmol/L (98-107); Potassium 3.7 mmol/L (3.5-5.1); Sodium 140 mmol/L (136-145)
[2023-11-13 08:34] LABS: Anion Gap 4 (5-15); Calcium 9.4 mg/dL (8.5-10.1); Carbon Dioxide 30 mmol/L (20-30)
[2023-11-13 08:37] LABS: Creatinine, Urine 179.79 mg/dL (30.0-125.0)
[2023-11-13 08:39] LABS: BUN/Creatinine Ratio 17.5 (10.0-20.0); Blood Urea Nitrogen 14 mg/dL (9-23); Glucose 115 mg/dL (74-106)
[2023-11-13 09:06] LABS: Folate (Folic Acid) 26.27 ng/mL (>5.38)
== END | disposition home or self-care (01) ==
LOC: LAB 07:33
PROVIDERS: ATTEND Internal Medicine
DX: E78.5 Hyperlipidemia, unspecified (principal); E55.9 Vitamin D deficiency, unspecified; M85.80 Other specified disorders of bone density and structure, unspecified site; N94.89 Other specified conditions associated with female genital organs and menstrual cycle
CPT/HCPCS: 36415; 80048; 82043; 82306; 82570; 82607; 82746; 84207; 84443

== ENCOUNTER → 2024-01-29 | Outpatient (CLI) | payer MEDICARE, OTHER ==
[2024-01-29 07:18] LABS: Urine Bacteria None Seen /hpf (None Seen)
[2024-01-29 07:30] LABS: Urine Blood Negative /uL (Negative); Urine Clarity Clear (Clear); Urine Color Light-Yellow (Yellow); Urine Mucus FEW (None Seen); Urine Protein, UAD Negative (Negative); Urine Specific Gravity 1.018 (1.001-1.035); Urine Urobilinogen Normal (Negative); Urine WBC 1 /hpf (0 - 5); Urine pH 6.5 (5.0-9.0)
[2024-01-29 07:32] LABS: Basophils # (auto) 0 10 ^3/uL (0-0.2); Basophils % (auto) 0.6 % (0.0-2.0); Eosinophils # (auto) 0.1 10 ^3/uL (0-0.8); Eosinophils % (auto) 1.9 % (0.0-7.0); Hematocrit 40.5 % (36.0-46.0); Lymphocytes # (auto) 1.3 10 ^3/uL (0.4-5.4); Lymphocytes % (auto) 35.9 % (10.0-50.0); Mean Corpuscular Hemoglobin 31.4 pg (28.0-32.0); Mean Corpuscular Hgb Conc. 34.4 g/dL (32.0-36.0); Mean Corpuscular Volume 91.3 fL (80.0-100.0); Monocytes # (auto) 0.3 10 ^3/uL (0-1.3); Monocytes % (auto) 8.1 % (0.0-12.0); Neutrophils # (auto) 1.9 10 ^3/uL (1.6-8.6); Neutrophils % (auto) 53.5 % (37.0-80.0); Nucleated Red Blood Cells % 0.2 %; Red Blood Cells 4.44 10^6/uL (4.0-5.20); Red Cell Distribution Width 12.1 % (11.8-14.3); White Blood Cell 3.6 10^3/uL (4.4-10.8)
[2024-01-29 08:47] LABS: Alanine Aminotransferase 24 U/L (7-40); Alkaline Phosphatase 44 U/L (46-116); Amylase 72 U/L (30-118); Anion Gap 3 (5-15); Aspartate Aminotransferase 17 U/L (13-40); BUN/Creatinine Ratio 20.3 (10.0-20.0); Blood Urea Nitrogen 15 mg/dL (9-23); Calcium 9.8 mg/dL (8.5-10.1); Carbon Dioxide 30 mmol/L (20-30); Chloride 107 mmol/L (98-107); Glucose 108 mg/dL (74-106); Sodium 140 mmol/L (136-145)
[2024-01-29 08:48] LABS: Albumin 4.4 g/dL (3.2-4.8); Bilirubin, Total 0.9 mg/dL (0.2-1.0); Total Protein 6.9 g/dL (5.7-8.2)
[2024-01-29 09:01] LABS: Lipase 39 U/L (12-53)
== END | disposition home or self-care (01) ==
LOC: LAB 07:09
PROVIDERS: ATTEND Internal Medicine
DX: N94.89 Other specified conditions associated with female genital organs and menstrual cycle (principal); R10.9 Unspecified abdominal pain; I73.9 Peripheral vascular disease, unspecified
CPT/HCPCS: 36415; 80053; 81001; 82150; 83690; 85025

== ENCOUNTER 2024-04-24 05:45 | Inpatient (IN) | payer MEDICARE, OTHER ==
[~2024-04-24] VITALS: Ht 152.4 cm; Wt 54.1 kg
[2024-04-24 06:44] LABS: Alanine Aminotransferase 26 U/L (7-40); Alkaline Phosphatase 48 U/L (46-116); Anion Gap 5 (5-15); Aspartate Aminotransferase 22 U/L (13-40); BUN/Creatinine Ratio 19.3 (10.0-20.0); Blood Urea Nitrogen 16 mg/dL (9-23); Calcium 9.8 mg/dL (8.7-10.4); Carbon Dioxide 30 mmol/L (20-31); Chloride 105 mmol/L (98-107); Glucose 112 mg/dL (74-106); Potassium 3.8 mmol/L (3.5-5.1); Sodium 140 mmol/L (136-145)
[2024-04-24 06:45] LABS: Albumin 4.6 g/dL (3.2-4.8); Bilirubin, Total 1.1 mg/dL (0.2-1.0); Total Protein 7.2 g/dL (5.7-8.2)
[2024-04-24 07:00] LABS: Basophils # (auto) 0 10 ^3/uL (0-0.2); Basophils % (auto) 0.5 % (0.0-2.0); Eosinophils # (auto) 0.1 10 ^3/uL (0-0.8); Eosinophils % (auto) 2.3 % (0.0-7.0); Hematocrit 41.7 % (36.0-46.0); Hemoglobin 14.4 g/dL (12.2-16.2); Lymphocytes # (auto) 1.5 10 ^3/uL (0.4-5.4); Lymphocytes % (auto) 43.2 % (10.0-50.0); Mean Corpuscular Hemoglobin 32.2 pg (28.0-32.0); Mean Corpuscular Hgb Conc. 34.5 g/dL (32.0-36.0); Mean Corpuscular Volume 93.2 fL (80.0-100.0); Monocytes # (auto) 0.3 10 ^3/uL (0-1.3); Monocytes % (auto) 8.3 % (0.0-12.0); Neutrophils # (auto) 1.6 10 ^3/uL (1.6-8.6); Neutrophils % (auto) 45.7 % (37.0-80.0); Nucleated Red Blood Cells % 0.1 %; Platelet Count (auto) 166 10^3/uL (140-450); Red Blood Cells 4.47 10^6/uL (4.0-5.20); Red Cell Distribution Width 12.3 % (11.8-14.3); White Blood Cell 3.6 10^3/uL (4.4-10.8)
[2024-04-24] MEDS: SODIUM CHLORIDE 0.9% 1,000 ML IV ONE (09:51)
[2024-04-24] MEDS: MORPHINE SULFATE 4 MG/ML SYR/VIAL IV ONE (09:52)
[2024-04-24] MEDS: METOCLOPRAMIDE HCL 5MG/ml INJ 2ml VIAL IV ONE (09:53)
[2024-04-24] MEDS ORDERED: NITROGLYCERIN 0.4 MG SL TAB SL PRN (13:45)
[2024-04-24] MEDS ORDERED: MORPHINE SULFATE INJ 2 MG/ml SYRG IV PRN (13:45)
[2024-04-24] MEDS ORDERED: ONDANSETRON HCL 4 MG/2 ML VIAL IV PRN (13:45)
[2024-04-24] MEDS: ENALAPRIL MALEATE 10 MG TAB PO SCH (16:37)
[2024-04-24] MEDS: hydrOXYchloroQUINE SULFATE 200 MG TAB PO SCH (16:37)
[2024-04-24 17:11] VITALS: BP 129/71; PULSE 55; RESP 18; TEMP 97.5; O2SAT 98
[2024-04-24] MEDS ORDERED: ASPI-543 PO (17:40)
[2024-04-24 20:00] VITALS: RESP 18; O2SAT 93
[2024-04-24 21:20] VITALS: BP 143/84; PULSE 62; RESP 18; TEMP 98.1; O2SAT 93
[2024-04-24] MEDS: ZOLPIDEM TARTRATE 5 MG TAB PO PRN (21:35)
[2024-04-24] MEDS: ATORVASTATIN 20 MG TAB PO SCH (21:36)
[2024-04-24] MEDS: PANTOPRAZOLE 40 MG TAB PO SCH (21:36)
[2024-04-24] MEDS: MORPHINE SULFATE INJ 2 MG/ml SYRG IV PRN (21:39)
[2024-04-25] VITALS (8 sets, daily range): BP systolic 111–143; BP diastolic 54–77; PULSE 54–97; RESP 17–20; TEMP 97.5–98.4; O2SAT 94–98
[2024-04-25 06:13] LABS: Basophils # (auto) 0 10 ^3/uL (0-0.2); Basophils % (auto) 0.7 % (0.0-2.0); Eosinophils # (auto) 0.1 10 ^3/uL (0-0.8); Hematocrit 37.9 % (36.0-46.0); Hemoglobin 13.2 g/dL (12.2-16.2); Lymphocytes # (auto) 1.6 10 ^3/uL (0.4-5.4); Lymphocytes % (auto) 38.5 % (10.0-50.0); Mean Corpuscular Hemoglobin 32.4 pg (28.0-32.0); Mean Corpuscular Hgb Conc. 34.9 g/dL (32.0-36.0); Mean Corpuscular Volume 92.8 fL (80.0-100.0); Monocytes # (auto) 0.4 10 ^3/uL (0-1.3); Monocytes % (auto) 9.3 % (0.0-12.0); Neutrophils # (auto) 2.1 10 ^3/uL (1.6-8.6); Neutrophils % (auto) 49.5 % (37.0-80.0); Nucleated Red Blood Cells % 0.1 %; Platelet Count (auto) 163 10^3/uL (140-450); Red Blood Cells 4.09 10^6/uL (4.0-5.20); Red Cell Distribution Width 12.2 % (11.8-14.3); White Blood Cell 4.3 10^3/uL (4.4-10.8)
[2024-04-25 06:14] LABS: Calcium 9.4 mg/dL (8.7-10.4); Chloride 109 mmol/L (98-107); Potassium 3.8 mmol/L (3.5-5.1); Sodium 141 mmol/L (136-145)
[2024-04-25 06:15] LABS: Anion Gap 6 (5-15); Carbon Dioxide 26 mmol/L (20-31)
[2024-04-25 06:21] LABS: BUN/Creatinine Ratio 15.5 (10.0-20.0); Blood Urea Nitrogen 11 mg/dL (9-23); Glucose 109 mg/dL (74-106)
[2024-04-25] MEDS ORDERED: ENALAPRIL MALEATE 10 MG TAB PO SCH (10:00)
[2024-04-25] MEDS ORDERED: hydrOXYchloroQUINE SULFATE 200 MG TAB PO SCH (10:00)
[2024-04-25] MEDS: ASPirin 81 mg TAB PO ONE (13:00)
[2024-04-25] MEDS: CLOPIDOGREL BISULFATE 75 MG TAB PO ONE (13:00)
[2024-04-25 13:34] LABS: Triglycerides 81 mg/dL (< 150)
[2024-04-25 13:35] LABS: LDL Cholesterol 78 mg/dL (< 100)
[2024-04-25 13:36] LABS: Cholesterol 141 mg/dL (< 200); HDL Cholesterol 51 mg/dL (40-59)
[2024-04-26 00:41] VITALS: BP 115/65; PULSE 59; RESP 16; TEMP 98.8; O2SAT 98
[2024-04-26 05:31] VITALS: BP 128/68; PULSE 61; RESP 16; TEMP 98.4; O2SAT 96
[2024-04-26 06:19] LABS: Basophils # (auto) 0 10 ^3/uL (0-0.2); Basophils % (auto) 0.7 % (0.0-2.0); Eosinophils # (auto) 0.1 10 ^3/uL (0-0.8); Eosinophils % (auto) 2.1 % (0.0-7.0); Hematocrit 39.1 % (36.0-46.0); Hemoglobin 13.4 g/dL (12.2-16.2); Lymphocytes # (auto) 1.8 10 ^3/uL (0.4-5.4); Lymphocytes % (auto) 40.4 % (10.0-50.0); Mean Corpuscular Hemoglobin 31.9 pg (28.0-32.0); Mean Corpuscular Hgb Conc. 34.3 g/dL (32.0-36.0); Mean Corpuscular Volume 92.8 fL (80.0-100.0); Monocytes # (auto) 0.3 10 ^3/uL (0-1.3); Monocytes % (auto) 7.5 % (0.0-12.0); Neutrophils # (auto) 2.3 10 ^3/uL (1.6-8.6); Neutrophils % (auto) 49.3 % (37.0-80.0); Platelet Count (auto) 168 10^3/uL (140-450); Red Blood Cells 4.22 10^6/uL (4.0-5.20); Red Cell Distribution Width 12.8 % (11.8-14.3); White Blood Cell 4.6 10^3/uL (4.4-10.8)
[2024-04-26 06:27] LABS: Chloride 109 mmol/L (98-107); Sodium 141 mmol/L (136-145)
[2024-04-26 06:28] LABS: Anion Gap 5 (5-15); Carbon Dioxide 27 mmol/L (20-31)
[2024-04-26 06:29] LABS: Calcium 9.6 mg/dL (8.7-10.4)
[2024-04-26 06:33] LABS: BUN/Creatinine Ratio 17.3 (10.0-20.0); Blood Urea Nitrogen 14 mg/dL (9-23); Glucose 117 mg/dL (74-106)
[2024-04-26 08:00] VITALS: PULSE 52; PULSE 61; RESP 18; O2SAT 98
[2024-04-26] MEDS: CLOPIDOGREL BISULFATE 75 MG TAB PO SCH (10:16)
[2024-04-26] MEDS: ASPirin 81 mg TAB PO SCH (10:16)
== END 2024-04-26 14:05 | disposition left against medical advice (07) | DRG 554 ==
LOC: ER 05:45 → TELE 13:38 → TELE-WESTW 17:14
PROVIDERS: ADMIT Internal Medicine; ATTEND Internal Medicine
DX: M19.09 Primary osteoarthritis, other specified site (principal); I10 Essential (primary) hypertension; E78.5 Hyperlipidemia, unspecified; K21.9 Gastro-esophageal reflux disease without esophagitis; Z53.29 Procedure and treatment not carried out because of patient's decision for other reasons; I25.10 Atherosclerotic heart disease of native coronary artery without angina pectoris; M50.33 Other cervical disc degeneration, cervicothoracic region; I25.2 Old myocardial infarction; Z98.61 Coronary angioplasty status; Z87.891 Personal history of nicotine dependence; Z87.11 Personal history of peptic ulcer disease; Z88.5 Allergy status to narcotic agent; Z79.899 Other long term (current) drug therapy
CPT/HCPCS: 36415; 71045; 72070; 80048; 80053; 80061; 84443; 84484; 85025; 85379; 93005; 93306; 96374; 96375; G0378

== ENCOUNTER → 2024-05-05 | Outpatient (CLI) | payer MEDICARE, OTHER ==
[~2024-05-05] MED LIST changes: +ASPI-543 PO
== END | disposition home or self-care (01) ==
LOC: Rad HDHVI 10:00
PROVIDERS: ATTEND Internal Medicine Cardiovascular Disease
DX: I25.10 Atherosclerotic heart disease of native coronary artery without angina pectoris (principal)
CPT/HCPCS: 93306

== ENCOUNTER → 2024-05-08 | Outpatient (CLI) | payer MEDICARE, OTHER ==
[2024-05-08 08:13] LABS: Basophils # (auto) 0 10 ^3/uL (0-0.2); Basophils % (auto) 0.9 % (0.0-2.0); Eosinophils # (auto) 0.1 10 ^3/uL (0-0.8); Eosinophils % (auto) 1.8 % (0.0-7.0); Hematocrit 41.4 % (36.0-46.0); Hemoglobin 14.1 g/dL (12.2-16.2); Lymphocytes # (auto) 1.4 10 ^3/uL (0.4-5.4); Lymphocytes % (auto) 43.2 % (10.0-50.0); Mean Corpuscular Hemoglobin 31.6 pg (28.0-32.0); Mean Corpuscular Volume 93.2 fL (80.0-100.0); Monocytes # (auto) 0.3 10 ^3/uL (0-1.3); Monocytes % (auto) 8.5 % (0.0-12.0); Neutrophils # (auto) 1.5 10 ^3/uL (1.6-8.6); Neutrophils % (auto) 45.6 % (37.0-80.0); Nucleated Red Blood Cells % 0.2 %; Platelet Count (auto) 173 10^3/uL (140-450); Red Blood Cells 4.44 10^6/uL (4.0-5.20); Red Cell Distribution Width 12.7 % (11.8-14.3); White Blood Cell 3.2 10^3/uL (4.4-10.8)
== END | disposition home or self-care (01) ==
LOC: LAB 07:42
PROVIDERS: ATTEND Internal Medicine
DX: M06.9 Rheumatoid arthritis, unspecified (principal); E53.1 Pyridoxine deficiency; E55.9 Vitamin D deficiency, unspecified; Z79.899 Other long term (current) drug therapy
CPT/HCPCS: 36415; 82306; 83036; 84207; 85025

== ENCOUNTER → 2024-05-23 | Outpatient (CLI) | payer MEDICARE, OTHER ==
[2024-05-23 07:09] LABS: Triglycerides 125 mg/dL (< 150)
[2024-05-23 07:10] LABS: LDL Cholesterol 149 mg/dL (< 100)
[2024-05-23 07:11] LABS: Cholesterol 222 mg/dL (< 200); HDL Cholesterol 57 mg/dL (40-59)
== END | disposition home or self-care (01) ==
LOC: LAB 06:28
PROVIDERS: ATTEND Internal Medicine
DX: E78.5 Hyperlipidemia, unspecified (principal)
CPT/HCPCS: 36415; 80061

== ENCOUNTER → 2024-08-11 | Outpatient (CLI) | payer MEDICARE, OTHER ==
[2024-08-11 08:19] LABS: Basophils # (auto) 0 10 ^3/uL (0-0.2); Basophils % (auto) 0.7 % (0.0-2.0); Eosinophils # (auto) 0.1 10 ^3/uL (0-0.8); Hematocrit 43.4 % (36.0-46.0); Hemoglobin 14.8 g/dL (12.2-16.2); Lymphocytes # (auto) 1.7 10 ^3/uL (0.4-5.4); Lymphocytes % (auto) 45.7 % (10.0-50.0); Mean Corpuscular Hemoglobin 31.4 pg (28.0-32.0); Mean Corpuscular Hgb Conc. 34.1 g/dL (32.0-36.0); Mean Corpuscular Volume 92.3 fL (80.0-100.0); Monocytes # (auto) 0.3 10 ^3/uL (0-1.3); Monocytes % (auto) 8.4 % (0.0-12.0); Neutrophils # (auto) 1.6 10 ^3/uL (1.6-8.6); Neutrophils % (auto) 43.2 % (37.0-80.0); Nucleated Red Blood Cells % 0.2 %; Platelet Count (auto) 193 10^3/uL (140-450); Red Cell Distribution Width 12.2 % (11.8-14.3); White Blood Cell 3.6 10^3/uL (4.4-10.8)
[2024-08-11 08:25] LABS: HDL Cholesterol 58 mg/dL (40-59)
[2024-08-11 08:28] LABS: Cholesterol 242 mg/dL (< 200); LDL Cholesterol 155 mg/dL (< 100); Triglycerides 151 mg/dL (< 150)
== END | disposition home or self-care (01) ==
LOC: LAB 07:22
PROVIDERS: ATTEND Internal Medicine
DX: E78.5 Hyperlipidemia, unspecified (principal); D78.89 Other postprocedural complications of the spleen; Z79.899 Other long term (current) drug therapy
CPT/HCPCS: 36415; 80061; 82306; 84207; 85025

== ENCOUNTER → 2024-09-08 | Outpatient (CLI) | payer MEDICARE, OTHER ==
[2024-09-08 07:59] LABS: Albumin 4.6 g/dL (3.2-4.8); Bilirubin, Total 0.9 mg/dL (0.2-1.0); Total Protein 7.1 g/dL (5.7-8.2)
[2024-09-08 08:14] LABS: Bilirubin, Direct 0.2 mg/dL (<0.3)
== END | disposition home or self-care (01) ==
LOC: LAB 07:00
PROVIDERS: ATTEND Internal Medicine
DX: E78.5 Hyperlipidemia, unspecified (principal)
CPT/HCPCS: 36415; 80076

== ENCOUNTER → 2024-09-22 | Outpatient (CLI) | payer MEDICARE, OTHER ==
[2024-09-22 07:58] LABS: Albumin 4.6 g/dL (3.2-4.8); Total Protein 7.1 g/dL (5.7-8.2)
[2024-09-22 07:59] LABS: Bilirubin, Direct 0.2 mg/dL (<0.3)
== END | disposition home or self-care (01) ==
LOC: LAB 06:24
PROVIDERS: ATTEND Internal Medicine
DX: E78.5 Hyperlipidemia, unspecified (principal); D72.819 Decreased white blood cell count, unspecified
CPT/HCPCS: 36415; 80061; 80076; 84207

== ENCOUNTER 2025-02-02 12:37 | Inpatient (IN) | payer MEDICARE, OTHER ==
[~2025-02-02] VITALS: Ht 30.5 cm; Wt 57.1 kg
[2025-02-02 13:36] LABS: Urine Protein, UAD Negative (Negative)
[2025-02-02] MEDS: SUCRALFATE 1 GM/10 ML ORAL SUSP PO ONE (13:48)
[2025-02-02] MEDS: PANTOPRAZOLE 40 MG/10 ML VIAL INJ IV ONE (13:48)
[2025-02-02 13:51] VITALS: PULSE 64; RESP 18; O2SAT 98
[2025-02-02 13:53] LABS: Benzodiazephine Screen, Urine Neg (NEGATIVE)
[2025-02-02 13:57] LABS: Amphetamine Screen, Urine Neg (NEGATIVE); Barbiturate Scree,Urine Neg (NEGATIVE); Cannabinoid Screen, Urine Neg (NEGATIVE); Cocaine Screen, Urine Neg (NEGATIVE); Opiate Scree,Urine Neg (NEGATIVE); Phencyclidine Screen, Urine Neg (NEGATIVE)
[2025-02-02 14:42] LABS: Hematocrit 40.1 % (36.0-46.0); Hemoglobin 13.8 g/dL (12.2-16.2); Mean Corpuscular Hemoglobin 31.9 pg (28.0-32.0); Mean Corpuscular Volume 92.5 fL (80.0-100.0); Nucleated Red Blood Cells % 0.1 %
[2025-02-02 14:50] LABS: Chloride 105 mmol/L (98-107); Potassium 4.0 mmol/L (3.5-5.1); Sodium 140 mmol/L (136-145)
[2025-02-02 14:51] LABS: Anion Gap 5 (5-15); Carbon Dioxide 30 mmol/L (20-31)
[2025-02-02 14:52] LABS: Calcium 10.1 mg/dL (8.7-10.4)
[2025-02-02 14:56] LABS: Glucose 93 mg/dL (74-106)
[2025-02-02 14:57] LABS: BUN/Creatinine Ratio 17.2 (10.0-20.0); Blood Urea Nitrogen 17 mg/dL (9-23)
--- NOTE | 2025-02-02 15:06 | ED.PDOC ---
History of Present Illness HPI Comments Patient is a 69-year-old female with a medical history of hypertension, hyperlipidemia, [place] s/p PCI x2 presented to the ED with a chief complaint of epigastric abdominal pain for the last 3 weeks. Patient reports of epigastric abdominal pain which is nonradiating, intermittent, crampy associated with symptoms of dyspepsia, early satiety, bloating and burps after eating. About 10 days ago she was seen by her primary care provider and was started on Protonix and Carafate for did not help with the symptoms. Patient denies any vomiting, diarrhea, constipation, black stools, blood in stool. Denies weight loss, night sweats. Chief Complaint: Abdominal Pain Time Seen by MD: 12:43 Primary Care Provider: ESAU Allergies: Coded Allergies: Hydrocodone (Verified Allergy, Unknown, Dizziness, Shaking, 01/19/23) [place] Flavoring Agent (non-screenin (Verified Allergy, Unknown, Hives, 01/19/23) Home Meds Active Scripts Pantoprazole Sodium Sesquihydr (Pantoprazole Sodium) 40 Mg Tab, 40 MG PO BID for 30 Days, #60 TAB Prov:IVIS RO MD 04/15/20 Reported Medications Aspirin (Aspir-Low) 81 Mg Tab, 81 MG PO DAILY for 30 Days, MG 04/24/24 Ticagrelor Base (BRILINTA) 90 Mg Tab, 1 TAB PO BID 02/06/23 Lorazepam (Lorazepam) 1 Mg Tab, 1 TAB PO DAILYPRN PRN for ANXIETY 02/06/23 Clopidogrel Bisulfate (CLOPIDOGREL) 75 Mg Tab, 1 TAB PO DAILY 02/06/23 Hydroxychloroquine Sulfate (Hydroxychloroquine Sulfat) 200 Mg Tab, 200 MG PO DAILY for Arthritis for 30 Days, MG 01/19/23 Cholecalciferol (VITAMIN D3) Unknown Strength Tab, PO DAILY, #30 TAB 5 Refills 04/13/20 Multiple Vitamins W/ Minerals (Multivitamin Adults 50+) 1 Tab Tab, 1 TAB PO DAILY, TAB 04/13/20 Enalapril Maleate (VASOTEC TABLET) 10 Mg Tb, 1 TAB PO DAILY, #30 TAB 5 Refills 12/24/18 Atorvastatin Calcium (ATORVASTATIN CALCIUM) 10 Mg Tab, 1 TAB PO DAILY, #30 TAB 5 Refills 12/24/18 Zolpidem Tartrate (Ambien) 10 Mg Tab, 1 TAB PO QPM, #30 TAB 5 Refills 12/24/18 Mode of Arrival: Ambulatory Past Medical History PAST MEDICAL HISTORY: CAD, GERD, High Lipids, HTN, HI, PUD Surgical History: , [employer] INVENTORY AUDITOR History: No Pertinent INVENTORY AUDITOR History Family History Family History: Unknown Social History Smoker: Quit Less Than 1 Year Alcohol: Occasionally Drugs: Denies Drug Use Lives In: Home Constitutional: denies: chills, diaphoresis, fatigue, fever, malaise, sweats, weakness, others EENTM: denies: blurred vision, double vision, ear bleeding, ear discharge, ear drainage, ear pain, ear ringing, eye pain, eye redness, hearing loss, mouth pain, mouth swelling, nasal discharge, nose bleeding, nose congestion, nose pain, photophobia, tearing, throat pain, throat swelling, voice changes, others Respiratory: denies: cough, hemoptysis, orthopnea, SOB at rest, shortness of breath, SOB with excertion, stridor, wheezing, others Cardiovascular: denies: chest pain, dizzy spells, diaphoresis, Dyspnea on exertion, edema, irregular heart beat, left arm pain, lightheadedness, palpitations, PND, syncope, others Gastrointestinal: reports: abdominal pain, nausea, poor appetite Genitourinary: denies: abnormal vagina bleeding, burning, dyspareunia, dysuria, flank pain, frequency, hematuria, incontinence, pain, , vagina discharge, urgency, others Neurological: denies: dizziness, fainting, headache, left sided numbness, left sided weakness, numbness, paresthesia, pre-existing deficit, right sided numbness, right sided weakness, seizure, speech problems, tingling, tremors, weakness, others Musculoskeletal: denies: back pain, gout, joint pain, joint swelling, muscle pain, muscle stiffness, neck pain, others Integumetry: denies: bruises, change in color, change in hair/nails, dryness, laceration, lesions, lumps, rash, wounds, others Allergic/Immunocompromised: denies: Difficulty Healing, Frequent Infections, Hives, Itching, others Hematologic/Lymphatic: denies: anemia, blood clots, easy bleeding, easy bruising, swollen glands, others Endocrine: denies: excessive hunger, excessive sweating, excessive thirst, excessive urination, flushing, intolerance to cold, intolerance to heat, unexpl ained weight gain, unexplained weight loss, others Psychiatric: denies: anxiety, bipolar disorder, depression, hopeless, panic disorder, schizophrenia, sleepless, suicidal, others Physical Exam General Appearance: Mild Distress, Thin HEENT: Normal ENT Inspection, Pharynx Normal, TMs Normal Neck: Full Range of Motion, Non-Tender, Normal, Normal Inspection Respiratory: Chest Non-Tender, Lungs Clear, No Accessory Muscle Use, No Respiratory Distress, Normal Breath Sounds Cardiovascular: No Edema, No JVD, No Murmur, No Gallop, Normal Peripheral Pulses, Regular Rate/Rhythm Breast Exam: Deferred Gastrointestinal: Epigastric, No Organomegaly, No Pulsatile Mass, Normal Bowel Sounds, Tenderness Genitalia: Deferred Pelvic: Deferred Rectal: Deferred Extremities: No calf tenderness, Normal capillary refill, Normal inspection, Normal range of motion, Non-tender, No pedal edema Neurologic: Alert, director of user experience II-XII nml as Tested, No Motor Deficits, Normal Affect, Normal Mood, No Sensory Deficits Cerebellar Function: Normal Reflexes: NOT DONE Skin: Dry, Normal Color, Warm Peripheral Pulses: 2+ Radial (R), 2+ Radial (L) Lymphatic: No Adenopathy Was a procedure done? Was a procedure done?: No Differential Dx Considerations may include: Acute gastritis, peptic ulcer disease, cholecystitis, pancreatitis, gastroenteritis, ileus, hypermotility, bowel obstruction X-Ray, Labs, Meds, VS Vital Signs Date Time Temp Pulse Resp B/P (MAP) Pulse Ox O2 Delivery O2 Flow Rate FiO2 02/02/25 16:43 56 20 97 Room Air 02/02/25 16:43 98.6 56 20 142/50 (80) 97 98.6 02/02/25 13:51 64 18 98 Room Air* 0 21 02/02/25 13:51 98.2 64 18 104/52 (69) 98 98.2 02/02/25 12:59 67 02/02/25 12:55 98.1 70 16 130/76 (94) 96 98.1 Lab Test 02/02/25 14:10 02/02/25 13:01 Range/Units White Blood Count 4.7 4.4-10.8 10^3/uL Red Blood Count 4.33 4.0-5.20 10^6/uL Hemoglobin 13.8 12.2-16.2 g/dL Hematocrit 40.1 36.0-46.0 % Mean Corpuscular Volume 92.5 80.0-100.0 fL Mean Corpuscular Hemoglobin 31.9 28.0-32.0 pg Mean Corpuscular Hemoglobin Concent 34.5 32.0-36.0 g/dL Red Cell Distribution Width 12.9 11.8-14.3 % Platelet Count 192 140-450 10^3/uL Mean Platelet Volume 8.9 6.9-10.8 fL Neutrophils (%) (Auto) 60.3 37.0-80.0 % Lymphocytes (%) (Auto) 29.9 10.0-50.0 % Monocytes (%) (Auto) 6.9 0.0-12.0 % Eosinophils (%) (Auto) 2.4 0.0-7.0 % Basophils (%) (Auto) 0.5 0.0-2.0 % Neutrophils # (Auto) 2.9 1.6-8.6 10 ^3/uL Lymphocytes # (Auto) 1.4 0.4-5.4 10 ^3/uL Monocytes # (Auto) 0.3 0-1.3 10 ^3/uL Eosinophils # (Auto) 0.1 0-0.8 10 ^3/uL Basophils # (Auto) 0 0-0.2 10 ^3/uL Nucleated Red Blood Cells 0.1 % Sodium Level 140 136-145 mmol/L Potassium Level 4.0 3.5-5.1 mmol/L Chloride Level 105 98-107 mmol/L Carbon Dioxide Level 30 20-31 mmol/L Anion Gap 5 5-15 Blood Urea Nitrogen 17 9-23 mg/dL Creatinine 0.99 0.550-1.02 mg/dL Glomerular Filtration Rate Calc 62 >90 mL/min BUN/Creatinine Ratio 17.2 10.0-20.0 Serum Glucose 93 74-106 mg/dL Calcium Level 10.1 8.7-10.4 mg/dL Lipase 48 12-53 U/L Urine Color Light-yellow Yellow Urine Clarity Clear Clear Urine pH 5.5 5.0-9.0 Urine Specific [place] 1.013 1.001-1.035 Urine Protein Negative Negative Urine Ketones Negative Negative Urine Blood Negative Negative /uL Urine Nitrite Negative Negative Urine Bilirubin Negative Negative Urine Urobilinogen Normal Negative mg/dL Urine Leukocyte Esterase Negative Negative /uL Urine RBC <1 0 - 4 /hpf Urine Microscopic WBC < 1 0-5 /HPF Urine Squamous Epithelial Cells Few <5 /hpf Urine Bacteria None seen None Seen /hpf Urine Mucus Few None Seen Urine Glucose Normal Normal mg/dL Urine Opiates Screen Neg NEGATIVE Urine Fentanyl Screen Neg NEGATIVE Urine Barbiturates Screen Neg NEGATIVE Urine Phencyclidine Screen Neg NEGATIVE Urine Amphetamines Screen Neg NEGATIVE Urine Benzodiazepines Screen Neg NEGATIVE Urine Cocaine Screen Neg NEGATIVE Urine Cannabinoids Screen Neg NEGATIVE Current Medications Medications (Trade) Dose Ordered Sig/Ki Route Start Time Stop Time Status Last Admin Pantoprazole Sodium (Protonix) 40 mg ONCE ONCE IV 02/02/25 13:15 02/02/25 13:35 DC 02/02/25 13:48 Sucralfate (Carafate Susp) 1 gm ONCE ONCE PO 02/02/25 13:15 02/02/25 13:35 DC 02/02/25 13:48 Patient is a 69-year-old female came to the ER with a chief complaint of epigastric abdominal pain. Patient has been having with the pain since the last 3 weeks on and off associated with dyspepsia, early satiety, nausea but denies any vomiting, melena, constipation, diarrhea. CT abdomen pelvis with IV contrast was done which showed fecal like contents with a small mobile which could be seen in ileus, hypomotility, bowel obstruction and moderate volume stool within the colon. CBC , BMP BNP were grossly normal and lipase level were within normal limits. Since the patient has been having this pain for the last 3 weeks and is not relieved from Protonix and Carafate, associated with symptoms of dyspepsia patient might benefit from a EGD and will be admitted for further inpatient management. Patient and the daughter agrees with the further plan of management. Time of 1ST Reevaluation: 14:48 Reevaluation 1ST: Unchanged Patient Education/Counseling: Diagnosis, Treatment Family Education/Counseling: Diagnosis, Treatment SEPSIS Sepsis Screen Date sepsis recognized/suspect: Feb 02, 2025 Time Sepsis recognized/suspect: 1254 Recent Procedure: No On Antibiotic Therapy: No Respiratory Rate >20: No Heart Rate >90: No Temp<36 C (96.8 F) or >38.3 C: No SBP <90 or MAP <65 mmHG: No New Acute Mental Status Change: No Is the patient on CPAP, BIPAP,: No Physician Orders Ct Ab Pel With Iv Con Only (02/02/25 13:01) Heplock Iv (02/02/25 ) Electrocardigram (02/02/25 13:53) Vital Signs Date Time Temp Pulse Resp B/P (MAP) Pulse Ox O2 Delivery O2 Flow Rate FiO2 02/02/25 16:43 56 20 97 Room Air 02/02/25 16:43 98.6 56 20 142/50 (80) 97 98.6 02/02/25 13:51 64 18 98 Room Air* 0 21 02/02/25 13:51 98.2 64 18 104/52 (69) 98 98.2 02/02/25 12:59 67 02/02/25 12:55 98.1 70 16 130/76 (94) 96 98.1 Laboratory Tests Test 02/02/25 14:10 White Blood Count 4.7 10^3/uL (4.4-10.8) Medications Medications Dose Ordered Sig/Ki Route Start Time Stop Time Status Last Admin Dose Admin Pantoprazole Sodium 40 mg ONCE ONCE IV 02/02/25 13:15 02/02/25 13:35 DC 02/02/25 13:48 Sucralfate 1 gm ONCE ONCE PO 02/02/25 13:15 02/02/25 13:35 DC 02/02/25 13:48 Departure 1 Departure Time of Disposition: 17:40 Impression: Primary Impression: Acute abdominal pain Additional Impressions: Dyspepsia Constipation Disposition: 09 ADMITTED INPATIENT Condition: Stable Critical Care Note Critical Care Time?: No Stability Stability form required: No Heart Score Heart Score: Heart Score Response (Comments) Value History N/A 0 EKG N/A 0 Age N/A 0 Risk Factors N/A 0 Troponin N/A 0 Total 0 ALONZO PROCTOR RESIDENT Feb 02, 2025 15:06
--- NOTE | 2025-02-02 17:16 | DVH ---
Indication: epigastric pain, dyspepsia Technique: CT axial images of the abdomen and pelvis are obtained with intravenous contrast. Coronal and sagittal reformats were obtained. Radiation Dose Information: CTDI volume is 5.07 mGy. Dose-length product is 272.39 mGy*cm Comparison: CT ABD PELVIS W CONTRAST on DOS: 04/13/22, CT AB PEL WITH IV CON ONLY on DOS: 02/19/22 FINDINGS: The lung bases demonstrate atelectasis. Adrenal glands, spleen, pancreas unremarkable. No enhancing hepatic lesion. No CT evidence for cholel ithiasis. No hydronephrosis. Stomach is partially distended. Small bowel loops demonstrate Fecal like contents. Moderate volume stool within the colon. Normal appendix. Abdominal aorta normal in caliber. Atherosclerotic disease. Bladder distended. No free pelvic fluid. No inguinal lymphadenopathy. There is mild bilateral sacroiliac degenerative joint disease. [id number] thoracolumbar degener ative disc disease. IMPRESSION: Fecal like contents within the small bowel which can be seen with ileus, hypomotility, bowel obstruct ion. Moderate volume stool within the colon. Atherosclerotic disease. Other findings as described.
--- NOTE | 2025-02-02 18:35 | ECG ---
[facility] Test Date: 2025-02-02 Test Time: 12:59:16 Pat Name: MANJEET MACDONALD Department: er Room: Gender: F Director Of Early Childhood Education: gibran : 1955 Requested By: ALONZO PROCTOR Order Number: [id number] Reading MD: Abhishek Braga Measurements Intervals [place] Rate: 67 P: 65 CT: 137 QRS: 76 QRSD: 89 T: 73 QT: 424 QTc: 448 Interpretive Statements Sinus rhythm Electronically Signed On 02-02-2025 19:38:05 PDT by Abhishek Braga Please click the below link to view image of tracing.
[2025-02-02] MEDS ORDERED: NITROGLYCERIN 0.4 MG SL TAB SL PRN (23:15)
[2025-02-02] MEDS ORDERED: MORPHINE SULFATE INJ 2 MG/ml SYRG IV PRN (23:15)
--- NOTE | 2025-02-02 23:17 | DVHHP2 ---
History of Present Illness History of Present Illness This is a 69-year-old female with past medical history of hypertension, hyperlipidemia, [place] s/p PCI x2 with 2 stent (on 2013 and 2022), PUD presented to the ED with a chief complaint of epigastric pain for the last 3 weeks but worsen last 2 days which is localized, cramping in nature, 8 to 9/10 intensity, aggravated after meal, no radiation, tried PPI/sucralfate with does not helps. Patient having similar symptoms before and visited primary care and prescribed medicine is not helping to reduce epigastric pain. Patient also reported feeling nausea but no vomiting, dyspepsia, early satiety and bloating after eating. Currently denies any chest pain, cough, SOB, headache, diarrhea, constipation, dysuria, fever. Seen by director of family service center Dr. Perez and last visit January 26. 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 PCP: Karthik Ballard Review of Systems Constitutional: Yes: Weakness; No: Fever, Chills, Sweats, Malaise, Other Eyes: No: Pain, Vision change, Conjunctivae inflammation, Eyelid inflammation, Other, Redness ENT: No: Ear pain, Ear discharge, Nose pain, Nose discharge, Nose congestion, Mouth pain, Mouth swelling, Throat pain, Throat swelling, Other Respiratory: No: Cough, Dry, Shortness of breath, SOB with excertion, Wheezing, Hemoptysis, Pleuritic Pain, Sputum, Wheezing, Other Gastrointestinal: Nausea, Abdominal Pain, Other (Feeling bloating ); No: Vomiting, Diarrhea, Constipation, Melena, Hematochezia Genitourinary: No Dysuria, No Frequency, No Incontinence, No Hematuria, No Retention, No Other Musculoskeletal: No: other, neck pain, shoulder pain, arm pain, back pain, hand pain, leg pain, foot pain Skin: No: Rash, Lesions, Jaundice, Bruising, Other Neurological: No: Weakness, Numbness, Incoordination, Change in speech, Confusion, Seizures, Other Allergies: Coded Allergies: Hydrocodone (Verified Allergy, Unknown, Dizziness, Shaking, 01/19/23) [place] Flavoring Agent (non-screenin (Verified Allergy, Unknown, Hives, 01/19/23) Exam Vital Signs Vital Signs Date Time Temp Pulse Resp B/P (MAP) Pulse Ox O2 Delivery O2 Flow Rate FiO2 02/02/25 21:36 97.6 55 20 151/76 (101) 97 97.6 02/02/25 16:43 Room Air 02/02/25 13:51 0 21 General Appearance: Alert, Oriented X3, Cooperative, No acute distress HEENT: Atraumatic, PERRLA, EOMI Respiratory: Clear to auscultation, Normal air movement Cardiovascular: Regular rate, Normal S1, Normal S2 Abdominal: Normal bowel sounds, Soft, Other (Tenderness present epigastric region on deep palpation) Extremities: No clubbing, No cyanosis, No edema, Normal pulses Skin: No rashes, No breakdown, No significant lesion Neuro: Normal gait, Normal speech, Strength at 5/5 X4 ext Labs/Xrays Labs Test 02/02/25 14:10 02/02/25 13:01 Range/Units White Blood Count 4.7 4.4-10.8 10^3/uL Red Blood Count 4.33 4.0-5.20 10^6/uL Hemoglobin 13.8 12.2-16.2 g/dL Hematocrit 40.1 36.0-46.0 % Mean Corpuscular Volume 92.5 80.0-100.0 fL Mean Corpuscular Hemoglobin 31.9 28.0-32.0 pg Mean Corpuscular Hemoglobin Concent 34.5 32.0-36.0 g/dL Red Cell Distribution Width 12.9 11.8-14.3 % Platelet Count 192 140-450 10^3/uL Mean Platelet Volume 8.9 6.9-10.8 fL Neutrophils (%) (Auto) 60.3 37.0-80.0 % Lymphocytes (%) (Auto) 29.9 10.0-50.0 % Monocytes (%) (Auto) 6.9 0.0-12.0 % Eosinophils (%) (Auto) 2.4 0.0-7.0 % Basophils (%) (Auto) 0.5 0.0-2.0 % Neutrophils # (Auto) 2.9 1.6-8.6 10 ^3/uL Lymphocytes # (Auto) 1.4 0.4-5.4 10 ^3/uL Monocytes # (Auto) 0.3 0-1.3 10 ^3/uL Eosinophils # (Auto) 0.1 0-0.8 10 ^3/uL Basophils # (Auto) 0 0-0.2 10 ^3/uL Nucleated Red Blood Cells 0.1 % Sodium Level 140 136-145 mmol/L Potassium Level 4.0 3.5-5.1 mmol/L Chloride Level 105 98-107 mmol/L Carbon Dioxide Level 30 20-31 mmol/L Anion Gap 5 5-15 Blood Urea Nitrogen 17 9-23 mg/dL Creatinine 0.99 0.550-1.02 mg/dL Glomerular Filtration Rate Calc 62 >90 mL/min BUN/Creatinine Ratio 17.2 10.0-20.0 Serum Glucose 93 74-106 mg/dL Calcium Level 10.1 8.7-10.4 mg/dL Lipase 48 12-53 U/L Urine Color Light-yellow Yellow Urine Clarity Clear Clear Urine pH 5.5 5.0-9.0 Urine Specific [place] 1.013 1.001-1.035 Urine Protein Negative Negative Urine Ketones Negative Negative Urine Blood Negative Negative /uL Urine Nitrite Negative Negative Urine Bilirubin Negative Negative Urine Urobilinogen Normal Negative mg/dL Urine Leukocyte Esterase Negative Negative /uL Urine RBC <1 0 - 4 /hpf Urine Microscopic WBC < 1 0-5 /HPF Urine Squamous Epithelial Cells Few <5 /hpf Urine Bacteria None seen None Seen /hpf Urine Mucus Few None Seen Urine Glucose Normal Normal mg/dL Urine Opiates Screen Neg NEGATIVE Urine Fentanyl Screen Neg NEGATIVE Urine Barbiturates Screen Neg NEGATIVE Urine Phencyclidine Screen Neg NEGATIVE Urine Amphetamines Screen Neg NEGATIVE Urine Benzodiazepines Screen Neg NEGATIVE Urine Cocaine Screen Neg NEGATIVE Urine Cannabinoids Screen Neg NEGATIVE SEPSIS Sepsis Screen Date sepsis recognized/suspect: Feb 02, 2025 Time Sepsis recognized/suspect: 1645 Recent Procedure: No On Antibiotic Therapy: No Respiratory Rate >20: No Heart Rate >90: No Temp<36 C (96.8 F) or >38.3 C: No SBP <90 or MAP <65 mmHG: No New Acute Mental Status Change: No Is the patient on CPAP, BIPAP,: No Physician Orders Admit (02/02/25 23:09) Nitroglycerin Sublingual (Ntrostat Subli (02/02/25 23:15) Morphine Sulfate Injection (02/02/25 23:15) Cardiac Diet-2gna,Lofat,Lochol (02/03/25 Breakfast) Vital Signs Date Time Temp Pulse Resp B/P (MAP) Pulse Ox O2 Delivery O2 Flow Rate FiO2 02/02/25 21:36 97.6 55 20 151/76 (101) 97 97.6 02/02/25 19:12 97.6 67 20 141/72 (95) 96 97.6 02/02/25 16:43 56 20 97 Room Air 02/02/25 16:43 98.6 56 20 142/50 (80) 97 98.6 Laboratory Tests Test 02/02/25 14:10 White Blood Count 4.7 10^3/uL (4.4-10.8) Medications Medications Dose Ordered Sig/Ki Route Start Time Stop Time Status Last Admin Dose Admin Pantoprazole Sodium 40 mg ONCE ONCE IV 02/02/25 13:15 02/02/25 13:35 DC 02/02/25 13:48 40 MG Sucralfate 1 gm ONCE ONCE PO 02/02/25 13:15 02/02/25 13:35 DC 02/02/25 13:48 1 GM Assessment/Plan Assessment/Plan # Epigastric pain and Nausea due to GERD, Failure medical management with PPI -Patient came with epigastric pain and nausea -Tried PPI and sucralfate but not helps -As per patient, endoscopy done 2 years back and reports seems to be normal. -Received sucralfate 1 g po and pantoprazole IV in ER -Lipase 48 -EKG: SINUS RHYTHM, HEART RATE 67, QTC 448 -Urine-drug screening negative -CT abdomen with IV contrast-Fecal like contents within the small bowel which can be seen with ileus, hypo motility, bowel obstruction.Moderate volume stool within the colon. Atherosclerotic disease. -Avoid any NSAIDS -Pantoprazole 40 mg IV daily -Sucralfate 1 g p.o. q.6 H -GI consult # Chronic gastritis -On PPI/sucralfate-home medicine # Essential hypertension -Continue Enalapril 10 mg p.o. daily # Osteoarthritis -Hydroxychloroquine 200 po mg daily #Hyperlipidemia -Atorvastatin 40 mg p.o. daily # Coronary artery disease s/p PCI x2 with 2 stent (on 2013 and 2022) -Hold aspirin and ticagrelor and continue clopidogrel 75 mg p.o. daily -Atorvastatin 40 mg p.o. daily -Followed by director of family service center Dr. Perez. Diet: Cardiac GI prophylaxis: Pantoprazole 40 mg daily DVT prophylaxis: Sequential compression device. Goals of care discussions, more than 26 minute spent. Full code status. Case discussed with Dr. Paniagua Plan discussed with: Patient, Other (Nurse) My Orders Orders - BISHOP YOUNG Procedure Category Date Status Time Admit ADMIT 02/02/25 Transmitted 23:09 Nitroglycerin PHA 02/02/25 Transmitted Sublingual (Ntrostat 23:15 Morphine Sulfate PHA 02/02/25 Transmitted Injection 23:15 Cardiac DIET 02/03/25 Transmitted Diet-2gna,Lofat,Lochol Breakfast Date of Service: Feb 02, 2025 Billing Provider: SANDRA PANIAGUA MD Common Visit Codes: 83455-[id number] INP/OBS CARE (HIGH) Secondary Visit Codes: 74250-[id number] CARE PLAN 30 MINUTES BISHOP YOUNG Feb 02, 2025 23:17
[2025-02-03] VITALS (9 sets, daily range): BP systolic 122–151; BP diastolic 74–89; PULSE 53–64; RESP 16–20; TEMP 95.6–98.3; O2SAT 93–98
[2025-02-03] MEDS ORDERED: TRAM-626 PO (01:33)
[2025-02-03] MEDS ORDERED: VALS40TA2 PO (01:34)
[2025-02-03] MEDS ORDERED: ZOLP10TA6 PO (01:35)
[2025-02-03] MEDS ORDERED: EZET10TA22 PO ×2 (01:36)
[2025-02-03] MEDS: ACETAMINOPHEN 325 MG TAB PO PRN (01:49)
[2025-02-03] MEDS: SUCRALFATE 1 GM TAB PO SCH (06:14)
[2025-02-03] MEDS: PANTOPRAZOLE 40 MG/10 ML VIAL INJ IV SCH (08:45)
[2025-02-03] MEDS: ENALAPRIL MALEATE 10 MG TAB PO SCH (08:46)
[2025-02-03] MEDS: CLOPIDOGREL BISULFATE 75 MG TAB PO SCH (08:50)
--- NOTE | 2025-02-03 12:44 | DVHINCON2 ---
GI Consult Consult Note GI consult note Date of Consultation: 02/03/2025 Chief Complaint: Treatment failure gastritis Referring Physician: Dr. Nunez H&P: 69-year-old female with past medical history of hypertension, hyperlipidemia, [place] status post PCI x2 2013 and 2022 with stent placement, PUD admitted to the hospital with complains of epigastric abdominal pain for the past four weeks. Patient admits this is her 3rd admission with similar symptoms. Has nausea, denies vomiting or hematemesis. Sometimes patient feels like her bread stops because of the intense abdominal pain. Denies history of GERD. No melena or red blood in stool. Last bowel movement today. Usually has history of constipation treated with [id number] fiber. Status post colonoscopy gastro group five years ago with polyps removed. Status post EGD 2010 diagnosed chronic inactive gastritis Patient says she has stopped taking Plavix, was on aspirin last dosage 5-7 days ago Patient did get a dose of Plavix of the hospital today Past Medical History: Hypertension, hyperlipidemia, [place] s/p PCI x2 with 2 stent (on 2013 and 2022) Past Surgical History: , PTCA Social History: Smoker: Quit Less Than 1 Year Alcohol: Occasionally Drugs: Denies Drug Use Lives In: Home Family History: Unknown per chart Review of Systems: Constitutional: no fever, chill, weight loss HEENT: no eye pain, no hearing loss, no oral lesion, no scleral icterus Heart: no chest pain, no chest pressure Lung: no cough, no dyspnea with exertion Abdomen: see HPI Physical exam: General: NAD, AAOX3 Chest: lung grant clear to auscultation Heart: RRR, no murmur Abdomen:+ epigastric tenderness to palpation, +BS Labs: Labs Test 02/02/25 14:10 02/02/25 13:01 Range/Units White Blood Count 4.7 4.4-10.8 10^3/uL Red Blood Count 4.33 4.0-5.20 10^6/uL Hemoglobin 13.8 12.2-16.2 g/dL Hematocrit 40.1 36.0-46.0 % Mean Corpuscular Volume 92.5 80.0-100.0 fL Mean Corpuscular Hemoglobin 31.9 28.0-32.0 pg Mean Corpuscular Hemoglobin Concent 34.5 32.0-36.0 g/dL Red Cell Distribution Width 12.9 11.8-14.3 % Platelet Count 192 140-450 10^3/uL Mean Platelet Volume 8.9 6.9-10.8 fL Neutrophils (%) (Auto) 60.3 37.0-80.0 % Lymphocytes (%) (Auto) 29.9 10.0-50.0 % Monocytes (%) (Auto) 6.9 0.0-12.0 % Eosinophils (%) (Auto) 2.4 0.0-7.0 % Basophils (%) (Auto) 0.5 0.0-2.0 % Neutrophils # (Auto) 2.9 1.6-8.6 10 ^3/uL Lymphocytes # (Auto) 1.4 0.4-5.4 10 ^3/uL Monocytes # (Auto) 0.3 0-1.3 10 ^3/uL Eosinophils # (Auto) 0.1 0-0.8 10 ^3/uL Basophils # (Auto) 0 0-0.2 10 ^3/uL Nucleated Red Blood Cells 0.1 % Sodium Level 140 136-145 mmol/L Potassium Level 4.0 3.5-5.1 mmol/L Chloride Level 105 98-107 mmol/L Carbon Dioxide Level 30 20-31 mmol/L Anion Gap 5 5-15 Blood Urea Nitrogen 17 9-23 mg/dL Creatinine 0.99 0.550-1.02 mg/dL Glomerular Filtration Rate Calc 62 >90 mL/min BUN/Creatinine Ratio 17.2 10.0-20.0 Serum Glucose 93 74-106 mg/dL Calcium Level 10.1 8.7-10.4 mg/dL Lipase 48 12-53 U/L Urine Color Light-yellow Yellow Urine Clarity Clear Clear Urine pH 5.5 5.0-9.0 Urine Specific [place] 1.013 1.001-1.035 Urine Protein Negative Negative Urine Ketones Negative Negative Urine Blood Negative Negative /uL Urine Nitrite Negative Negative Urine Bilirubin Negative Negative Urine Urobilinogen Normal Negative mg/dL Urine Leukocyte Esterase Negative Negative /uL Urine RBC <1 0 - 4 /hpf Urine Microscopic WBC < 1 0-5 /HPF Urine Squamous Epithelial Cells Few <5 /hpf Urine Bacteria None seen None Seen /hpf Urine Mucus Few None Seen Urine Glucose Normal Normal mg/dL Urine Opiates Screen Neg NEGATIVE Urine Fentanyl Screen Neg NEGATIVE Urine Barbiturates Screen Neg NEGATIVE Urine Phencyclidine Screen Neg NEGATIVE Urine Amphetamines Screen Neg NEGATIVE Urine Benzodiazepines Screen Neg NEGATIVE Urine Cocaine Screen Neg NEGATIVE Urine Cannabinoids Screen Neg NEGATIVE Imaging: CT abdomen pelvis IMPRESSION: Fecal like contents within the small bowel which can be seen with ileus, hypomotility, bowel obstruction. Moderate volume stool within the colon. Atherosclerotic disease. Other findings as described. Assessment: Abdominal pain History of gastritis Plan: Discussed with Dr. Hammond Monitor labs Protonix and Carafate Colace. Recommend MiraLax if symptoms of constipation persist NPO after midnight Possible plan for EGD tomorrow if patient's symptoms persist Hold all blood thinners Plan discussed with patient and RN Thank you for this consult Date of Service: Feb 03, 2025 Billing Provider: STIVEN UGARTE Common Visit Codes: CONSULT ONLY Consultation Codes: [id number] CONSULT <60MIN STIVEN UGARTE Feb 03, 2025 12:44
--- NOTE | 2025-02-03 13:37 | DVHPNRES ---
Progress Note Date Seen: Feb 03, 2025 Resident Creating Document: JULES CHING RESIDENT Medical Necessity Reason Pt with a Central, PICC or Fol: No Subjective Review of Systems History of Present Illness This is a 69-year-old female with past medical history of hypertension, hyperlipidemia, [place] s/p PCI x2 with 2 stent (on 2013 and 2022), PUD presented to the ED with a chief complaint of epigastric pain for the last 3 weeks but worsen last 2 days which is localized, cramping in nature, 8 to 9/10 intensity, aggravated after meal, no radiation, tried PPI/sucralfate with does not helps. Patient having similar symptoms before and visited primary care and prescribed medicine is not helping to reduce epigastric pain. Patient also reported feeling nausea but no vomiting, dyspepsia, early satiety and bloating after eating. Currently denies any chest pain, cough, SOB, headache, diarrhea, constipation, dysuria, fever. Seen by mail distributor Dr. Perez and last visit January 26. PAST MEDICAL HISTORY: Hypertension, hyperlipidemia, [place] s/p PCI x2 with 2 stent (on 2013 and 2022) Surgical History: , PTCA RECLAIMER History: No Pertinent RECLAIMER History Family History: Unknown Smoker: Quit Less Than 1 Year Alcohol: Occasionally Drugs: Denies Drug Use Lives In: Home Allergy: Hydrocodone, chris flavor agents. PCP: Karthik Ballard 02/03 interval events: She has some mild abdominal pain, which increases after eating, the pain is associated with nausea, pain does not radiate,gradual in onset. The patient has tingling sensation on her feet. She denies any chest pain, shortness of breath, fever, chills or any other complaints at this time. Review of systems: The patient was seen and examined at the bedside. Overnight events were reviewed. No new complaints reported. Rest of the ROS is negative except for upper abdominal pain. Objective vital signs Vital Sign Date Time Temp Pulse Resp B/P (MAP) Pulse Ox O2 Delivery O2 Flow Rate FiO2 02/03/25 12:35 98.2 53 17 146/86 (106) 97 98.2 02/03/25 01:45 Room Air* 0 21 Total Intake and Output 02/02/25 02/02/25 02/03/25 15:00 23:00 07:00 Intake Total 0 ml Balance 0 ml medications Current Medications Medications Dose Ordered Sig/Ki Route Start Time Stop Time Status Last Admin Dose Admin Nitroglycerin 0.4 mg Q5MINP PRN SL 02/02/25 23:15 Morphine Sulfate 2 mg Q30M PRN IV 02/02/25 23:15 Atorvastatin Calcium 40 mg HS PO 02/03/25 22:00 Clopidogrel Bisulfate 75 mg DAILY PO 02/03/25 10:00 02/03/25 08:50 75 MG Enalapril Maleate 10 mg DAILY PO 02/03/25 10:00 02/03/25 08:46 10 MG Hydroxychloroquine Sulfate 200 mg DAILY PO 02/03/25 10:00 02/03/25 08:45 200 MG Pantoprazole Sodium 40 mg DAILY IV 02/03/25 10:00 02/03/25 08:45 40 MG Sucralfate 1 gm QIDACHS PO 02/03/25 07:00 02/03/25 13:03 1 GM Acetaminophen 650 mg Q6HP PRN PO 02/03/25 01:45 02/03/25 08:45 650 MG Docusate Sodium 100 mg BIDPRN PRN PO 02/03/25 12:45 Examination Pt is lying on bed General Appearance: Alert, Oriented X3, Cooperative, Mild distress HEENT: Atraumatic, Mucous membranes moist/pink Respiratory: Clear to auscultation, Normal air movement, No added sounds Cardiovascular: Regular rate, Normal S1, Normal S2, No murmurs Abdominal/ : Active bowel sounds, epigastric tenderness noted. Soft, no distention, no tenderness Extremities: No edema, Normal pulses, No tenderness/swelling Skin: No Significant rash, except past surgical scars Neuro: Normal speech, sensorimotor deficits none Psych/Mental Status: Mental status NL, Mood NL Nurse was there as mender knit goods during examination laboratory and microbiology Laboratory Tests 02/02/25 14:10 Test 02/02/25 14:10 Range/Units Serum Glucose 93 74-106 mg/dL Problem List/Assessment/Plan Problem List/Assessment/Plan # Epigastric pain likely Gastritis/ PUD -As per patient, endoscopy done 2 years back and reports seems to be normal. -Lipase 48 -EKG: SINUS RHYTHM, HEART RATE 67, QTC 448 -Urine-drug screening negative -CT abdomen with IV contrast-Fecal like contents within the small bowel which can be seen with ileus, hypo motility, bowel obstruction.Moderate volume stool within the colon. and Atherosclerotic disease. -Avoid any NSAIDS -Pantoprazole 40 mg IV daily -Sucralfate 1 g p.o. q.6 H -GI consult done -Monitor labs -Protonix and Carafate - NPO after midnight - Possible plan for EGD tomorrow if patient's symptoms persist - Hold all blood thinners # Constipation -Colace. Recommend MiraLax if symptoms of constipation persist # hypertensive crisis- controlling -Continue Enalapril 10 mg p.o. daily # arthritis -Hydroxychloroquine 200 po mg daily #Hyperlipidemia -Atorvastatin 40 mg p.o. daily # Coronary artery disease s/p PCI x2 with 2 stent (on 2013 and 2022) -Hold aspirin and ticagrelor and continue clopidogrel 75 mg p.o. daily -Atorvastatin 40 mg p.o. daily -Followed by mail distributor Dr. Perez. Diet: Cardiac GI prophylaxis: Pantoprazole 40 mg daily DVT prophylaxis: Sequential compression device. Case discussed with , patient and RN Plan discussed with: Patient, Other (RN) Date of Service: Feb 03, 2025 Billing Provider: ALIDA KAUR MD Common Visit Codes: [id number] INP/OBS CARE(HIGH) JULES CHING RESIDENT Feb 03, 2025 13:37 ALIDA KAUR MD Feb 03, 2025 17:45
[2025-02-03 14:34] LABS: Hematocrit 39.9 % (36.0-46.0); Hemoglobin 13.5 g/dL (12.2-16.2); Mean Corpuscular Hemoglobin 31.3 pg (28.0-32.0); Mean Corpuscular Volume 92.5 fL (80.0-100.0); Nucleated Red Blood Cells % 0.2 %
[2025-02-03 14:55] LABS: Alanine Aminotransferase 20 U/L (7-40); Albumin 4.2 g/dL (3.2-4.8); Alkaline Phosphatase 47 U/L (46-116); Anion Gap 7 (5-15); BUN/Creatinine Ratio 15.7 (10.0-20.0); Bilirubin, Total 0.8 mg/dL (0.2-1.0); Blood Urea Nitrogen 11 mg/dL (9-23); Calcium 9.8 mg/dL (8.7-10.4); Carbon Dioxide 26 mmol/L (20-31); Potassium 3.6 mmol/L (3.5-5.1); Sodium 141 mmol/L (136-145); Total Protein 6.4 g/dL (5.7-8.2)
[2025-02-03 14:56] LABS: Chloride 108 mmol/L (98-107); Glucose 135 mg/dL (74-106)
[2025-02-03 15:07] LABS: Lipase 51 U/L (12-53)
[2025-02-03] MEDS: LORazepam 0.5 MG TAB PO ONE (17:20)
[2025-02-03] MEDS: MELATONIN 5 MG TAB PO ONE (21:32)
[2025-02-03] MEDS: ATORVASTATIN 20 MG TAB PO SCH (21:32)
[2025-02-04] VITALS (8 sets, daily range): BP systolic 109–137; BP diastolic 68–76; PULSE 51–59; RESP 14–18; TEMP 97–98.5; O2SAT 94–98
--- NOTE | 2025-02-04 06:35 | DVH ---
CHEST RADIOGRAPH Indication: pre-op Technique: Single frontal view of the chest was obtained COMPARISON: XY CHEST PORTABLE on DOS: 04/24/24, XY CHEST PORTABLE on DOS: 02/04/23, XY CHEST PORTABLE o n DOS: 01/19/23, XY CHEST PORTABLE on DOS: 01/13/23, XY CHEST PORTABLE on DOS: 12/26/22 FINDINGS: Lines and Tubes: None Lungs: Clear Pleura: No effusion. No pneumothorax. Cardiomediastinal contours: Unremarkable Bones: Unremarkable IMPRESSION: 1. No acute disease.
[2025-02-04 09:12] LABS: INR 0.99 (0.9-1.15); Partial Thromboplastin Time 28.9 SEC (24.5-34.5); Prothrombin Time 10.5 sec (9.3-11.8)
[2025-02-04 09:14] LABS: Alanine Aminotransferase 18 U/L (7-40); Albumin 4.2 g/dL (3.2-4.8); Anion Gap 5 (5-15); BUN/Creatinine Ratio 14.9 (10.0-20.0); Bilirubin, Total 0.9 mg/dL (0.2-1.0); Blood Urea Nitrogen 11 mg/dL (9-23); Calcium 9.6 mg/dL (8.7-10.4); Carbon Dioxide 28 mmol/L (20-31); Potassium 4.1 mmol/L (3.5-5.1); Sodium 141 mmol/L (136-145); Total Protein 6.5 g/dL (5.7-8.2)
[2025-02-04 09:15] LABS: Hematocrit 39.3 % (36.0-46.0); Hemoglobin 13.6 g/dL (12.2-16.2); Mean Corpuscular Hemoglobin 31.8 pg (28.0-32.0); Mean Corpuscular Volume 91.9 fL (80.0-100.0); Nucleated Red Blood Cells % 0.1 %
[2025-02-04 09:16] LABS: Alkaline Phosphatase 45 U/L (46-116); Chloride 108 mmol/L (98-107); Glucose 116 mg/dL (74-106)
[2025-02-04] MEDS ORDERED: FLUMAZENIL 0.1 MG/ML INJ 10ML MDV IV ONE (11:03)
[2025-02-04] MEDS ORDERED: NALOXONE HCL 0.4 MG/ML VIAL ONE (11:03)
[2025-02-04] MEDS ORDERED: SODIUM CHLORIDE LOCK 10 ML ONE (11:03)
[2025-02-04] MEDS: LIDOCAINE VISCOUS 2% 15ML UD ONE (12:15)
[2025-02-04] MEDS: diphenhdrAMINE HCL 50 MG/1 ML VL ONE (12:17)
[2025-02-04] MEDS: MIDAZOLAM HCL 5 MG/ML-1ML VIAL ONE (12:17)
[2025-02-04] MEDS: fentaNYL CITRATE 100 MCG/2 ML VL ONE (12:17)
--- NOTE | 2025-02-04 12:54 | DVHOP2 ---
Operative Report DATE OF OPERATION: 02/04/25 PROCEDURE: Upper Endoscopy with biopsy. PREOPERATIVE INDICATION: The patient is a 69 -year-old female undergoing endoscopy for epigastric pain POSTOPERATIVE DIAGNOSES: 1. Mild gastritis involving the antrum and body of the stomach 2. Slightly irregular squamocolumnar junction and grade a erosive esophagitis otherwise normal examination up to the 2nd and 3rd part of the duodenal PROCEDURE PERFORMED BY: Elvia Hammond GI NURSE: Abbie SCOPE: Olympus videoendoscope. ASA CLASS: 2. PREOPERATIVE MEDICATIONS: Versed 2 mg, Fentanyl 50 mcg, Benadryl 50 mg I administered moderate sedation throughout this _8_ minutes procedure. An independent trained observer pushed medications at my direction, and monitored the patient's level of consciousness and physiological status throughout. PROCEDURE IN DETAIL: After obtaining an informed consent, the patient was placed on left lateral decubitus position. The patient was then sedated with the above medications. A bite block was placed between her teeth. The endoscope was then passed through the oropharynx, into the esophagus, and through the stomach and pylorus up to the second and third part of the duodenum. The endoscope was then withdrawn. The 2nd and 3rd part of the duodenum and the duodenal bulb were normal. Duodenal biopsies were obtained The pre-pyloric area antrum and body showed mild gastritis with some hyperemia and erythema. Biopsies were obtained On retroflexion the fundus cardia and angularis were normal. The endoscope was then withdrawn into distal esophagus She had a slightly irregular squamocolumnar junction but no significant hiatal hernia. Patient did have minimal grade A erosive esophagitis GE junction biopsies were obtained. The remaining distal and proximal esophagus and oropharynx were unremarkable The endoscope was then withdrawn into distal esophagus where the patient The patient tolerated the procedure well without difficulty. COMPLICATIONS : None SPECIMENS: Duodenal biopsies Gastric biopsies GE junction biopsies DISPOSITION: Transfer back to the floor Stable PLAN: 1. Await for biopsy result 2. Will place pt on Protonix 40 mg p.o. daily 3. Carafate 1 g p.o. twice a day 4. Resume soft mechanical diet advance as tolerated 5. Outpatient follow up with me in 4-6 weeks to discuss results and further management including consideration for outpatient elective colonoscopy ELVIA HAMMOND MD Feb 04, 2025 12:54
--- NOTE | 2025-02-04 13:03 | DVHPN2 ---
Progress Note - Dictate Date Seen: Feb 04, 2025 Medical Necessity Reason Pt with a Central, PICC or Fol: No Subjective PT WITH SS COMPLEX EPIGASTRIC PAIN HX OF PUD CT OF ABD PELVIS Fecal like contents within the small bowel which can be seen with ileus, hypomotility, bowel obstruction. Moderate volume stool within the colon. Significant for coronary artery disease, previous history of angioplasty with stent placement in the left anterior descending artery, history of hyperlipidemia, history of hypertension. She has been having intermittent episodes of chest pain. Hx of PUD No trauma. No history of melena, hematochezia, no bleeding diathesis. No history of hematemesis, hemoptysis, melena, or hematuria. \. Since then, patient has been disease free. At this time, no headaches, no seizure disorder. At this time, no history of liver disease, no history of kidney disease. vital signs Vital Sign Date Time Temp Pulse Resp B/P (MAP) Pulse Ox O2 Delivery O2 Flow Rate FiO2 02/04/25 09:00 98.5 51 16 137/74 (95) 98 98.5 02/04/25 08:00 Room Air* 0 21 Total Intake and Output 02/03/25 02/03/25 02/04/25 15:00 23:00 07:00 Intake Total 1800 ml Output Total 375 ml Balance 1800 ml -375 ml medications Current Medications Medications Dose Ordered Sig/Ki Route Start Time Stop Time Status Last Admin Dose Admin Nitroglycerin 0.4 mg Q5MINP PRN SL 02/02/25 23:15 Morphine Sulfate 2 mg Q30M PRN IV 02/02/25 23:15 Atorvastatin Calcium 40 mg HS PO 02/03/25 22:00 02/03/25 21:32 40 MG Clopidogrel Bisulfate 75 mg DAILY PO 02/03/25 10:00 Hold 02/03/25 08:50 75 MG Enalapril Maleate 10 mg DAILY PO 02/03/25 10:00 02/03/25 08:46 10 MG Hydroxychloroquine Sulfate 200 mg DAILY PO 02/03/25 10:00 02/03/25 08:45 200 MG Pantoprazole Sodium 40 mg DAILY IV 02/03/25 10:00 02/04/25 10:34 40 MG Sucralfate 1 gm QIDACHS PO 02/03/25 07:00 02/03/25 21:32 1 GM Acetaminophen 650 mg Q6HP PRN PO 02/03/25 01:45 02/03/25 08:45 650 MG Docusate Sodium 100 mg BIDPRN PRN PO 02/03/25 12:45 Zolpidem Tartrate 5 mg HSPRN PRN PO 02/04/25 11:45 objective HEENT: Pupils are reactive. Funduscopic exam shows no AV nicking, no exudates, no papilledema. Sclerae are anicteric. Extraocular muscles are intact. Conjunctivae negative. Tympanic membranes are normal. Oral mucosa moist. Posterior pharynx without any exudate. No cervical adenopathy, no supraclavicular adenopathy, no axillary adenopathy. NECK: No JVD appreciated. Carotid pulses are 2+ symmetrical, normal upstroke and contour. PULMONARY: Clear to auscultation. CARDIOVASCULAR: Regular rate without S3, without S4. PMI is not displaced. ABDOMEN: Soft, tender,negative for rebound , epigastric tenderness normal bowel sounds. SKIN: Unremarkable. EXTREMITIES: 2+ pulses, no edema noted. NEUROLOGIC: The patient is intact. objective laboratory and microbiology Laboratory Tests 02/04/25 08:28 Test 02/04/25 08:28 Range/Units Serum Glucose 116 H 74-106 mg/dL Problem List SS COMPLEX EPIGASTRIC PAIN HX OF PUD CT OF ABD PELVIS Fecal like contents within the small bowel which can be seen with ileus, hypomotility, bowel obstruction. Moderate volume stool within the colon. Assessment/Plan S/P EGD RESULTS PENDING LAXATIVE FOR CONSTIPATION Plan discussed with: Patient MARCO CRAFT MD Feb 04, 2025 13:03
--- NOTE | 2025-02-04 18:19 | DVHPNRES ---
Progress Note Date Seen: Feb 04, 2025 Resident Creating Document: JULES CHING RESIDENT Medical Necessity Reason Pt with a Central, PICC or Fol: No Subjective Review of Systems This is a 69-year-old female with past medical history of hypertension, hyperlipidemia, [place] s/p PCI x2 with 2 stent (on 2013 and 2022), PUD presented to the ED with a chief complaint of epigastric pain for the last 3 weeks but worsen last 2 days which is localized, cramping in nature, 8 to 9/10 intensity, aggravated after meal, no radiation, tried PPI/sucralfate with does not helps. Patient having similar symptoms before and visited primary care and prescribed medicine is not helping to reduce epigastric pain. Patient also reported feeling nausea but no vomiting, dyspepsia, early satiety and bloating after eating. Currently denies any chest pain, cough, SOB, headache, diarrhea, constipation, dysuria, fever. Seen by ship construction teacher Dr. Perez and last visit January 26. PMH: Hypertension, hyperlipidemia, [place] s/p PCI x2 with 2 stent (on 2013 and 2022) PSH: , PTCA SENIOR PROGRAM PLANNER History: No Pertinent SENIOR PROGRAM PLANNER History Family History: Unknown Smoker: Quit Less Than 1 Year Alcohol: Occasionally Drugs: Denies Drug Use Lives In: Home Allergy: Hydrocodone, chris flavor agents. PCP: Dr. Karthik Levy 02/04 interval events: The patient was seen and examined at the bedside. Overnight events were reviewed. She has no abdominal pain, the patient reports having mild back pain. She denies any chest pain, shortness of breath, fever, chills or any other complaints at this time. Objective vital signs Vital Sign Date Time Temp Pulse Resp B/P (MAP) Pulse Ox O2 Delivery O2 Flow Rate FiO2 02/04/25 17:00 98.4 53 18 129/75 (93) 94 98.4 02/04/25 08:00 Room Air* 0 21 Total Intake and Output 02/03/25 02/03/25 02/04/25 15:00 23:00 07:00 Intake Total 1800 ml Output Total 375 ml Balance 1800 ml -375 ml medications Current Medications Medications Dose Ordered Sig/Ki Route Start Time Stop Time Status Last Admin Dose Admin Nitroglycerin 0.4 mg Q5MINP PRN SL 02/02/25 23:15 Morphine Sulfate 2 mg Q30M PRN IV 02/02/25 23:15 Atorvastatin Calcium 40 mg HS PO 02/03/25 22:00 02/03/25 21:32 40 MG Clopidogrel Bisulfate 75 mg DAILY PO 02/03/25 10:00 Hold 02/03/25 08:50 75 MG Enalapril Maleate 10 mg DAILY PO 02/03/25 10:00 02/04/25 14:46 10 MG Hydroxychloroquine Sulfate 200 mg DAILY PO 02/03/25 10:00 02/04/25 14:46 200 MG Acetaminophen 650 mg Q6HP PRN PO 02/03/25 01:45 02/03/25 08:45 650 MG Docusate Sodium 100 mg BIDPRN PRN PO 02/03/25 12:45 Zolpidem Tartrate 5 mg HSPRN PRN PO 02/04/25 11:45 Sucralfate 1 gm BID@0600,2200 PO 02/04/25 22:00 Pantoprazole Sodium 40 mg DAILY@0600 PO 02/05/25 06:00 Examination Pt is lying on bed General Appearance: Alert, Oriented X3, Cooperative, No distress HEENT: Atraumatic, Mucous membranes moist/pink Respiratory: Clear to auscultation, Normal air movement, No added sounds Cardiovascular: Regular rate, Normal S1, Normal S2, No murmurs Abdominal/ : Active bowel sounds, Soft, no distention, no tenderness Extremities: No edema, Normal pulses, No tenderness/swelling Skin: No Significant rash, except past surgical scars Neuro: Normal speech, sensorimotor deficits none Psych/Mental Status: Mental status NL, Mood NL Nurse was there as pecan sheller during examination laboratory and microbiology Laboratory Tests 02/04/25 08:28 Test 02/04/25 08:28 Range/Units Serum Glucose 116 H 74-106 mg/dL Labs and/or images reviewed: Labs reviewed by me, Image(s) reviewed by me Problem List/Assessment/Plan Problem List/Assessment/Plan # Epigastric pain likely Gastritis/ PUD # Grade A erosive esophagitis -As per patient, endoscopy done 2 years back and reports seems to be normal. -Lipase normal -EKG: Sinus rhythm no acute ischemic changes -Urine-drug screening negative -CT abdomen with IV contrast-Fecal like contents within the small bowel which can be seen with ileus, hypo motility, bowel obstruction.Moderate volume stool within the colon. and Atherosclerotic disease. -Avoid any NSAIDS -Pantoprazole 40 mg IV daily -Sucralfate 1 g p.o. q.6 H -GI consult -Upper Endoscopy with biopsy on February 04, 2025: Mild gastritis involving the antrum and body of the stomach, Slightly irregular squamocolumnar junction and grade a erosive esophagitis otherwise normal examination up to the 2nd and 3rd part of the duodenal, outpatient follow-up for biopsy results -Protonix 40 mg p.o. daily -Carafate 1 g p.o. twice a day # Constipation -Colace. Recommend MiraLax if symptoms of constipation persist # hypertensive crisis- controlling -Continue Enalapril 10 mg p.o. daily - continuously monitor BP # Arthritis, unspecified -Hydroxychloroquine 200 po mg daily # Hyperlipidemia -Atorvastatin 40 mg p.o. daily # CAD s/p PCI x2 with 2 stent (on 2013 and 2022) -Hold aspirin and ticagrelor and continue clopidogrel 75 mg p.o. daily -Atorvastatin 40 mg p.o. daily -Followed by ship construction teacher Dr. Perez. Diet: Cardiac GI prophylaxis: Pantoprazole 40 mg daily DVT prophylaxis: Sequential compression device. Goals of care discussed with the patient, and her son for 20 minutes; full code Case discussed with , patient and RN Plan discussed with: Patient, Other (RN) My Orders My Orders Orders - JULES CHING Procedure Category Date Status Time Chest Portable XY 02/04/25 Resulted 04:28 Addendum Addendum Addendum I was physically present for the romo portions of the service provided to patient by THE RESIDENT. I have reviewed the documentation, discussed the case with resident and agree with the resident's documentation except as noted. Also the patient's clinical case was discussed with the patient's nurse. This medical document was created using an electronic medical record system with computerized dictation system. Although this document has been carefully reviewed, there might still be some phonetic and typographical errors. These areas are purely typographical due to imperfections of the software programs, and do not reflect any compromise in the patient's medical care. Late signature. Date of Service: Feb 04, 2025 Billing Provider: SUIN ISAAC MD Common Visit Codes: [id number] INP/OBS CARE(HIGH) Secondary Visit Codes: [id number] CARE PLAN 30 MINUTES (20 minutes) JULES CHING RESIDENT Feb 04, 2025 18:19 SERGIO GANN RESIDENT Feb 04, 2025 18:47 SUNI ISAAC MD Feb 06, 2025 04:35
[2025-02-04] MEDS: SUCRALFATE 1 GM/10 ML ORAL SUSP PO SCH (21:17)
[2025-02-04] MEDS: ZOLPIDEM TARTRATE 5 MG TAB PO PRN (21:17)
[2025-02-04] MEDS: DOCUSATE SOD 100 MG CAP PO PRN (21:17)
[2025-02-05 01:00] VITALS: BP 119/72; PULSE 60; RESP 14; TEMP 97; O2SAT 97
[2025-02-05 05:00] VITALS: BP 113/67; PULSE 55; RESP 14; TEMP 96.5; O2SAT 97
[2025-02-05] MEDS: PANTOPRAZOLE 40 MG TAB PO SCH (05:10)
[2025-02-05 05:35] LABS: Hematocrit 39.6 % (36.0-46.0); Hemoglobin 13.5 g/dL (12.2-16.2); Mean Corpuscular Hemoglobin 31.4 pg (28.0-32.0); Mean Corpuscular Volume 92.4 fL (80.0-100.0); Nucleated Red Blood Cells % 0.2 %
[2025-02-05 05:41] LABS: Chloride 106 mmol/L (98-107); Potassium 3.7 mmol/L (3.5-5.1); Sodium 141 mmol/L (136-145)
[2025-02-05 05:42] LABS: Anion Gap 7 (5-15); Carbon Dioxide 28 mmol/L (20-31)
[2025-02-05 05:43] LABS: Calcium 9.8 mg/dL (8.7-10.4)
[2025-02-05 05:47] LABS: BUN/Creatinine Ratio 15.2 (10.0-20.0); Blood Urea Nitrogen 12 mg/dL (9-23); Glucose 102 mg/dL (74-106)
[2025-02-05 08:20] VITALS: PULSE 62; RESP 17; O2SAT 97
[2025-02-05 09:00] VITALS: BP 137/63; PULSE 62; RESP 17; TEMP 98; O2SAT 97
[2025-02-05] MEDS ORDERED: PANT40T PO (09:34)
[2025-02-05] MEDS ORDERED: SUCR1SUS26 PO (09:34)
[2025-02-05] MEDS ORDERED: ENOXAPARIN SOD 30 MG/0.3 ML SYRINGE SC SCH (10:00)
--- NOTE | 2025-02-05 10:44 | DVHDSRES ---
Discharge Summary Date of Admission Resident Creating Document: JULES CHING Feb 02, 2025 at 23:09 Date of Discharge: Feb 05, 2025 Admitting Diagnosis Abdominal pain Labs/Diagnostic Data: Laboratory Results Test 02/05/25 04:00 02/04/25 08:28 02/03/25 14:17 02/02/25 13:01 White Blood Count 5.4 10^3/uL (4.4-10.8) Red Blood Count 4.29 10^6/uL (4.0-5.20) Hemoglobin 13.5 g/dL (12.2-16.2) Hematocrit 39.6 % (36.0-46.0) Mean Corpuscular Volume 92.4 fL (80.0-100.0) Mean Corpuscular Hemoglobin 31.4 pg (28.0-32.0) Mean Corpuscular Hemoglobin Concent 34.0 g/dL (32.0-36.0) Red Cell Distribution Width 12.5 % (11.8-14.3) Platelet Count 194 10^3/uL (140-450) Mean Platelet Volume 9.1 fL (6.9-10.8) Neutrophils (%) (Auto) 54.1 % (37.0-80.0) Lymphocytes (%) (Auto) 35.6 % (10.0-50.0) Monocytes (%) (Auto) 7.4 % (0.0-12.0) Eosinophils (%) (Auto) 2.5 % (0.0-7.0) Basophils (%) (Auto) 0.4 % (0.0-2.0) Neutrophils # (Auto) 2.9 10 ^3/uL (1.6-8.6) Lymphocytes # (Auto) 1.9 10 ^3/uL (0.4-5.4) Monocytes # (Auto) 0.4 10 ^3/uL (0-1.3) Eosinophils # (Auto) 0.1 10 ^3/uL (0-0.8) Basophils # (Auto) 0 10 ^3/uL (0-0.2) Nucleated Red Blood Cells 0.2 % Sodium Level 141 mmol/L (136-145) Potassium Level 3.7 mmol/L (3.5-5.1) Chloride Level 106 mmol/L (98-107) Carbon Dioxide Level 28 mmol/L (20-31) Anion Gap 7 (5-15) Blood Urea Nitrogen 12 mg/dL (9-23) Creatinine 0.79 mg/dL (0.550-1.02) Glomerular Filtration Rate Calc 81 mL/min (>90) BUN/Creatinine Ratio 15.2 (10.0-20.0) Serum Glucose 102 mg/dL (74-106) Calcium Level 9.8 mg/dL (8.7-10.4) Prothrombin Time 10.5 sec (9.3-11.8) Prothrombin Time INR 0.99 (0.9-1.15) Activated Partial Thromboplast Time 28.9 SEC (24.5-34.5) Total Bilirubin 0.9 mg/dL (0.2-1.0) Aspartate Amino Transferase (AST) 19 U/L (13-40) Alanine Aminotransferase (ALT) 18 U/L (7-40) Alkaline Phosphatase 45 U/L (46-116) Total Protein 6.5 g/dL (5.7-8.2) Albumin 4.2 g/dL (3.2-4.8) Lipase 51 U/L (12-53) Vitamin B12 Level 531 pg/mL (211-911) Urine Color Light-yellow (Yellow) Urine Clarity Clear (Clear) Urine pH 5.5 (5.0-9.0) Urine Specific Thayer 1.013 (1.001-1.035) Urine Protein Negative (Negative) Urine Ketones Negative (Negative) Urine Blood Negative /uL (Negative) Urine Nitrite Negative (Negative) Urine Bilirubin Negative (Negative) Urine Urobilinogen Normal mg/dL (Negative) Urine Leukocyte Esterase Negative /uL (Negative) Urine RBC <1 /hpf (0 - 4) Urine Microscopic WBC < 1 /HPF (0-5) Urine Squamous Epithelial Cells Few /hpf (<5) Urine Bacteria None seen /hpf (None Seen) Urine Mucus Few (None Seen) Urine Glucose Normal mg/dL (Normal) Urine Opiates Screen Neg (NEGATIVE) Urine Fentanyl Screen Neg (NEGATIVE) Urine Barbiturates Screen Neg (NEGATIVE) Urine Phencyclidine Screen Neg (NEGATIVE) Urine Amphetamines Screen Neg (NEGATIVE) Urine Benzodiazepines Screen Neg (NEGATIVE) Urine Cocaine Screen Neg (NEGATIVE) Urine Cannabinoids Screen Neg (NEGATIVE) Other Laboratory Tests 02/05/25 04:00 Brief Hx & Hospital Course: This is a 69-year-old female with past medical history of hypertension, hyperlipidemia, OR s/p PCI x2 with 2 stent (on 2013 and 2022), PUD presented to the ED with a chief complaint of epigastric pain for the last 3 weeks but worsen last 2 days which is localized, cramping in nature, 8 to 9/10 intensity, aggravated after meal, no radiation. Patient having similar symptoms before and visited primary care and prescribed medicine is not helping to reduce epigastric pain. Patient also reported feeling nausea but no vomiting, dyspepsia, early satiety and bloating after eating. Currently denies any chest pain, cough, SOB, headache, diarrhea, constipation, dysuria, fever. Patient required hospital admission for further evaluation and management of abdominal pain. CT abdomen with IV contrast showed fecal like contents within the small bowel which can be seen with ileus, hypomotility, bowel obstruction, moderate volume stool within the colon atherosclerotic disease. It was continued with a pantoprazole 40 mg IV daily and sucralfate 1 g p.o. q.6 H. GI was consulted. Upper endoscopy with biopsy revealed mild gastritis involving the antrum and body of the stomach, slightly irregular squamocolumnar junction and grade a erosive esophagitis otherwise normal examination up to the 2nd and 3rd part of the duodenal outpatient follow-up for biopsy results. Acute pancreatitis was excluded by lipase normal and CT abdomen with IV contrast. Thelipase was normal. EKG reveals sinus rhythm and no acute ischemic changes. Urine drug screen was negative. For her hypertensive crisis during the stay we used enalapril 10 mg p.o. daily it was controlled. Continuously BP was monitored. Continued her home medicine hydroxychloroquine, atorvastatin 40 mg p.o. daily was added for her hyperlipidemia and appropriate ASCVD score. The patient will be discharged home with PPI and sucralfate. The discharge plan was discussed with the patient and verbalized understanding. The patient was hemodynamically stable, afebrile and was tolerating oral food during the time of discharge. The patient was counseled on healthy lifestyle modification. The patient was advised to follow-up with PCP after 1 week as well as GI with the discussion of Pap surgeon and further follow up. Physical exam on the day of discharge: General Appearance: Alert, Oriented X3, Cooperative, Mild distress HEENT: Atraumatic, Mucous membranes moist/pink Respiratory: Clear to auscultation, Normal air movement, No added sounds Cardiovascular: Regular rate, Normal S1, Normal S2, No murmurs Abdominal/ : Active bowel sounds, Soft, no distention, no tenderness Extremities: No edema, Normal pulses, No tenderness/swelling Skin: No Significant rash, except past surgical scars Neuro: Normal speech, sensorimotor deficits none Psych/Mental Status: Mental status NL, Mood NL Discussed with Dr. Isaac Consults/Reason for consult GI for abdominal pain Operations or Procedures CT abdomen with IV contrast-Fecal like contents within the small bowel which can be seen with ileus, hypo motility, bowel obstruction.Moderate volume stool within the colon. and Atherosclerotic disease. Upper Endoscopy with biopsy on February 04, 2025: Mild gastritis involving the antrum and body of the stomach, Slightly irregular squamocolumnar junction and grade a erosive esophagitis otherwise normal examination up to the 2nd and 3rd part of the duodenal, outpatient follow-up for biopsy results Condition at Discharge: Stable Final Diagnosis/Problems List Gastritis Grade a erosive esophagitis Abdominal/Epigastric Pain due to above; resolving S/P EGD Hypertensive crisis; resolved Arthritis unspecified Hyperlipidemia Hx CAD status post PCI 2 times with 2 stent Discharge Disposition: Home Discharge Instruct/Medications Diet: Consistent carbohydrate, Cardiac 2g Na,low cholest Activity: No Restrictions, As Tolerated Follow Up/Referral: Follow-up with PCP in 1 week. Medications: As per EMR Scheduled Aspirin (Aspir-Low), 81 MG PO DAILY, (Reported) Atorvastatin Calcium (Atorvastatin Calcium), 1 TAB PO DAILY, (Reported) Cholecalciferol (Vitamin D3), Unknown Dose PO DAILY, (Reported) Enalapril Maleate (Vasotec Tablet), 1 TAB PO DAILY, (Reported) Ezetimibe (Zetia), 1 TAB PO DAILY, (Reported) Ezetimibe (Zetia), 5 MG PO DAILY, (Reported) Pantoprazole Sodium Sesquihydr (Pantoprazole Sodium), 40 MG PO DAILY Sucralfate (Carafate Susp), 1 GM PO BID@0600,2200 Tramadol HCl (Tramadol HCl), 50 MG PO BID, (Reported) Valsartan (Diovan), 80 MG PO DAILY, (Reported) Zolpidem Tartrate (Ambien), 1 TAB PO QPM, (Reported) Zolpidem Tartrate (Zolpidem Tartrate), 10 MG PO DAILY, (Reported) Scheduled PRN Lorazepam (Lorazepam), 1 TAB PO DAILYPRN PRN for ANXIETY, (Reported) Discontinued Medications Clopidogrel Bisulfate (Clopidogrel), 1 TAB PO DAILY, (Reported) Hydroxychloroquine Sulfate (Hydroxychloroquine Sulfat), 200 MG PO DAILY, (Reported) Multiple Vitamins W/ Minerals (Multivitamin Adults 50+), 1 TAB PO DAILY, (Reported) Ticagrelor Base (Brilinta), 1 TAB PO BID, (Reported) Discharge Statement: "Patient was advised to return to the ER or call 911 if any headaches, dizziness, shortness of breath, chest pain, abdominal pain, bleeding, fevers, or worsening of medical condition. Patient was counseled about treatment plan, medications, possible side effects, patientverbalized understanding. All questions were answered to the best of my ability. This discharge took greater then 30 minutes in planning, reviewing documentation, counseling the patient, and discussing with other team members." ASSESSMENT ASSESSMENT Assessment Addendum Addendum Addendum I was physically present for the romo portions of the service provided to patient by THE RESIDENT. I have reviewed the documentation, discussed the case with resident and agree with the resident's documentation except as noted. Also the patient's clinical case was discussed with the patient's nurse. This medical document was created using an electronic medical record system with computerized dictation system. Although this document has been carefully reviewed, there might still be some phonetic and typographical errors. These areas are purely typographical due to imperfections of the software programs, and do not reflect any compromise in the patient's medical care. Late signature. Date of Service: Feb 05, 2025 Billing Provider: SUNI ISAAC MD Common Visit Codes: 36586-KOI/OBS DISCH DAY >30min JEANE,JULES RESIDENT Feb 05, 2025 10:44 AZEEMSERGIO PEÑA RESIDENT Feb 05, 2025 17:03 SUNI ISAAC MD Feb 06, 2025 04:38
--- NOTE | 2025-02-05 11:16 | DVHPN2 ---
Progress Note - Dictate Date Seen: Feb 05, 2025 Medical Necessity Reason Pt with a Central, PICC or Fol: No Subjective PT WITH SS COMPLEX EPIGASTRIC PAIN HX OF PUD CT OF ABD PELVIS Fecal like contents within the small bowel which can be seen with ileus, hypomotility, bowel obstruction. Moderate volume stool within the colon. Significant for coronary artery disease, previous history of angioplasty with stent placement in the left anterior descending artery, history of hyperlipidemia, history of hypertension. She has been having intermittent episodes of chest pain. Hx of PUD No trauma. No history of melena, hematochezia, no bleeding diathesis. No history of hematemesis, hemoptysis, melena, or hematuria. \. Since then, patient has been disease free. At this time, no headaches, no seizure disorder. At this time, no history of liver disease, no history of kidney disease. vital signs Vital Sign Date Time Temp Pulse Resp B/P (MAP) Pulse Ox O2 Delivery O2 Flow Rate FiO2 02/05/25 10:48 139/73 02/05/25 09:00 98.0 62 17 97 98.0 02/05/25 08:20 Room Air* 0 21 Total Intake and Output 02/04/25 02/04/25 02/05/25 15:00 23:00 07:00 Intake Total 100 ml 400 ml 500 ml Balance 100 ml 400 ml 500 ml medications Current Medications Medications Dose Ordered Sig/Ki Route Start Time Stop Time Status Last Admin Dose Admin Nitroglycerin 0.4 mg Q5MINP PRN SL 02/02/25 23:15 Morphine Sulfate 2 mg Q30M PRN IV 02/02/25 23:15 Atorvastatin Calcium 40 mg HS PO 02/03/25 22:00 02/04/25 21:17 40 MG Clopidogrel Bisulfate 75 mg DAILY PO 02/03/25 10:00 Hold 02/03/25 08:50 75 MG Enalapril Maleate 10 mg DAILY PO 02/03/25 10:00 02/05/25 10:48 10 MG Hydroxychloroquine Sulfate 200 mg DAILY PO 02/03/25 10:00 02/05/25 10:47 200 MG Acetaminophen 650 mg Q6HP PRN PO 02/03/25 01:45 02/04/25 21:22 650 MG Docusate Sodium 100 mg BIDPRN PRN PO 02/03/25 12:45 7/16/25 21:17 100 MG Zolpidem Tartrate 5 mg HSPRN PRN PO 02/04/25 11:45 02/04/25 21:17 5 MG Sucralfate 1 gm BID@0600,2200 PO 02/04/25 22:00 02/05/25 05:09 1 GM Pantoprazole Sodium 40 mg DAILY@0600 PO 02/05/25 06:00 02/05/25 05:10 40 MG objective HEENT: Pupils are reactive. Funduscopic exam shows no AV nicking, no exudates, no papilledema. Sclerae are anicteric. Extraocular muscles are intact. Conjunctivae negative. Tympanic membranes are normal. Oral mucosa moist. Posterior pharynx without any exudate. No cervical adenopathy, no supraclavicular adenopathy, no axillary adenopathy. NECK: No JVD appreciated. Carotid pulses are 2+ symmetrical, normal upstroke and contour. PULMONARY: Clear to auscultation. CARDIOVASCULAR: Regular rate without S3, without S4. PMI is not displaced. ABDOMEN: Soft, tender,negative for rebound , epigastric tenderness normal bowel sounds. SKIN: Unremarkable. EXTREMITIES: 2+ pulses, no edema noted. NEUROLOGIC: The patient is intact. objective laboratory and microbiology Laboratory Tests 02/05/25 04:00 Test 02/05/25 04:00 Range/Units Serum Glucose 102 74-106 mg/dL Problem List SS COMPLEX EPIGASTRIC PAIN HX OF PUD CT OF ABD PELVIS Fecal like contents within the small bowel which can be seen with ileus, hypomotility, bowel obstruction. Moderate volume stool within the colon. Assessment/Plan S/P EGD mild erosive esophagitis LAXATIVE FOR CONSTIPATION MAY DC HOME Plan discussed with: Patient MARCO CRAFT MD Feb 05, 2025 11:16
[2025-02-05 13:00] VITALS: BP 127/80; PULSE 55; RESP 16; TEMP 96.3; O2SAT 97
[2025-02-05 13:05] VITALS: BP 139/73; PULSE 60; RESP 16; TEMP 36.7; O2SAT 97
== END 2025-02-05 14:40 | disposition home or self-care (01) | DRG 381 ==
LOC: ER 12:37 → OVERFLOW 23:09 → WEST WING 02-03 03:25 → EAST 02-03 05:30
PROVIDERS: ADMIT Internal Medicine; ATTEND Internal Medicine Gastroenterology
PROC: 0DB68ZX Excision of Stomach, Via Natural or Artificial Opening Endoscopic, Diagnostic (ICD-10-PCS; 2025-02-04)
PROC: 0DB48ZX Excision of Esophagogastric Junction, Via Natural or Artificial Opening Endoscopic, Diagnostic (ICD-10-PCS; 2025-02-04)
PROC: 0DB98ZX Excision of Duodenum, Via Natural or Artificial Opening Endoscopic, Diagnostic (ICD-10-PCS; principal; 2025-02-04 12:12)
DX: K22.10 Ulcer of esophagus without bleeding (principal); I16.9 Hypertensive crisis, unspecified; K29.50 Unspecified chronic gastritis without bleeding; K21.9 Gastro-esophageal reflux disease without esophagitis; K27.9 Peptic ulcer, site unspecified, unspecified as acute or chronic, without hemorrhage or perforation; I10 Essential (primary) hypertension; G40.909 Epilepsy, unspecified, not intractable, without status epilepticus; I25.10 Atherosclerotic heart disease of native coronary artery without angina pectoris; K59.00 Constipation, unspecified; M13.88 Other specified arthritis, other site; E78.5 Hyperlipidemia, unspecified; I25.2 Old myocardial infarction; Z98.61 Coronary angioplasty status; Z87.891 Personal history of nicotine dependence; Z87.11 Personal history of peptic ulcer disease; Z79.899 Other long term (current) drug therapy; Z79.02 Long term (current) use of antithrombotics/antiplatelets; Z88.8 Allergy status to other drugs, medicaments and biological substances; Z91.018 Allergy to other foods
CPT/HCPCS: 36415; 71045; 74177; 80048; 80053; 80307; 81001; 82607; 83690; 85025; 85610; 85730; 93005; 96374; G0378; J2250; J2470

== ENCOUNTER 2025-03-16 07:02 | Outpatient (CLI) | payer MEDICARE ==
[~2025-03-16 07:02] MED LIST changes: -CLOP75TA70 PO; +EZET10TA22 PO; -HYDR200T36 PO; -MULT1TAB65 PO; +SUCR1SUS26 PO; -TICA90TA PO; +TRAM-626 PO; +VALS40TA2 PO; +ZOLP10TA6 PO
[2025-03-16 07:48] LABS: Chloride 106 mmol/L (98-107); Potassium 4.0 mmol/L (3.5-5.1); Sodium 143 mmol/L (136-145)
[2025-03-16 07:49] LABS: Anion Gap 8 (5-15); Calcium 9.4 mg/dL (8.7-10.4)
[2025-03-16 07:54] LABS: Glucose 119 mg/dL (74-106)
[2025-03-16 13:48] LABS: Carbon Dioxide 29 mmol/L (20-31)
[2025-03-16 13:49] LABS: BUN/Creatinine Ratio 14.0 (10.0-20.0); Blood Urea Nitrogen 12 mg/dL (9-23)
== END 2025-03-16 17:00 | disposition home or self-care (01) ==
LOC: LAB 07:02
PROVIDERS: ATTEND Internal Medicine
DX: R10.9 Unspecified abdominal pain (principal)
CPT/HCPCS: 36415; 80048